=== PATIENT | male | born 1955 | race Caucasian/White ===

== ENCOUNTER 2020-02-06 22:38 | Emergency (ER) | payer BC ==
[2020-02-06 23:06] VITALS: BP 163/93; PULSE 80; RESP 18; TEMP 98
--- NOTE | 2020-02-06 23:56 | ED ---
Skin/Abscess/FB HPI - General Chief complaint: Skin/Abscess/Foreign Body Stated complaint: Bug bite on genitals Time Seen by Provider: 02/06/20 23:09 Source: patient Mode of arrival: ambulatory Limitations: no limitations - History of Present Illness Initial comments: Patient is a 64-year-old male presenting to the emergency Department with complaints of a small bump on his penis that he found this evening. 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 He denies any pain, trouble urinating. He denies any trauma to the area. He states there is some mild itchiness to the area. No other complaints at this time. - Related Data Home Medications Medication Instructions Recorded Confirmed Ibuprofen [Motrin] 200 mg PO ONCE PRN 04/14/16 04/14/16 Lisinopril [Prinivil] 10 mg PO DAILY 04/14/16 04/14/16 Tetrahydrozoline 0.05% Ophth 1 drop BOTH EYES DAILY PRN 04/14/16 04/14/16 [Visine Eye Drops] Previous Rx's Medication Instructions Recorded Mupirocin Calcium 2% Cream 1 applic TOPICAL TID #15 gm 04/14/16 [Bactroban Cream] Allergies Allergy/AdvReac Type Severity Reaction Status Date / Time No Known Allergies Allergy Verified 02/06/20 23:04 Review of Systems ROS Statement: Those systems with pertinent positive or pertinent negative responses have been documented in the HPI. ROS Other: All systems not noted in ROS Statement are negative. Past Medical History Past Medical History: Hypertension History of Any Multi-Drug Resistant Organisms: None Reported Past Surgical History: Hernia Repair Past Psychological History: No Psychological Hx Reported Smoking Status: Never smoker Past Alcohol Use History: None Reported Past Drug Use History: None Reported General Exam - General Exam Comments Initial Comments: GENERAL: Well-appearing, well-nourished and in no acute distress. HEAD: Atraumatic, normocephalic. EYES: Pupils equal round and reactive to light, extraocular movements intact, sclera anicteric, conjunctiva are normal. ENT: Nares patent, oropharynx clear without exudates. Moist mucous membranes. NECK: Normal range of motion, supple without lymphadenopathy or JVD. LUNGS: Breath sounds clear to auscultation bilaterally and equal. No wheezes rales or rhonchi. HEART: Regular rate and rhythm without murmurs, rubs or gallops. ABDOMEN: Soft, nontender, normoactive bowel sounds. No guarding, no rebound. No masses appreciated. : There appears to be a very superficial bruise to the top portion of the penis. There is no swelling, no signs of infection, no sores. EXTREMITIES: Normal range of motion, no pitting or edema. No clubbing or cyanosis. NEUROLOGICAL: Normal speech, normal gait. PSYCH: Normal mood, normal affect. SKIN: Warm, Dry, normal turgor, no rashes or lesions noted. Limitations: no limitations Course Vital Signs 02/06/20 23:04 Temperature 98 F Pulse Rate 80 Respiratory 18 Rate Blood Pressure 163/93 O2 Sat by Pulse 98 Oximetry Medical Decision Making - Medical Decision Making Patient is a 64-year-old male here for a possible blister on his penis. On exam, there appears to be a mild bruise to the top portion of the penis. Patient has no trouble with urination. I discussed with patient to continue to watch the area, as this is most likely a mild bruise. Follow-up with his PCP. He is stable for discharge. Patient is in agreement with this plan of care. Return parameters were discussed with the patient and he verbalized understand ing. Disposition Clinical Impression: Bruise of penis Disposition: HOME SELF-CARE Condition: Stable Additional Instructions: Please return to the Emergency Department if symptoms worsen or any other concerns. Monitor area, follow-up with PCP. Is patient prescribed a controlled substance at d/c from ED?: No Referrals: Ad Cardoza MD [Primary Care Provider] - 1-2 days
== END 2020-02-07 00:12 | disposition home or self-care (01) ==
LOC: EC 22:38
DX: S30.21XA Contusion of penis, initial encounter (principal); I10 Essential (primary) hypertension; Z79.899 Other long term (current) drug therapy; X58.XXXA Exposure to other specified factors, initial encounter
CPT/HCPCS: 99283

== ENCOUNTER 2023-08-25 16:44 | Inpatient (IN) | payer BC, MEDICARE ==
--- NOTE | 2023-08-25 17:03 | ED ---
General Adult HPI - General Source: patient Mode of arrival: ambulatory Limitations: no limitations <Liz Epsinoza - Last Filed: 08/25/23 17:02> - History of Present Illness -: days(s) Location: chest Consistency: now resolved Improves with: none Worsens with: none Associated Symptoms: other (leg swelling) Treatments Prior to Arrival: none <Stalin Donis - Last Filed: 09/01/23 09:51> - General Stated complaint: possible blood clot in left leg Time Seen by Provider: 08/25/23 17:02 - History of Present Illness Initial comments: 67-year-old male presenting with chief complaint of left lower leg swelling. Ongoing for 3 days. He admits to mild shortness of breath which he attributed to recently recovering from pneumonia. No chest pain. No recent surgery, travel, history of blood clot. (Liz Espinoza) this patient is a 67-year-old man who comes in to be evaluated for possible DVT. The patient states that he has noticed about 4 days of left leg swelling. He states that he might have struck the anterior aspect of the leg. He spoke with his physician today who told him that he needed go to the emergency department to be evaluated for possible blood clot. The patient states that in the week prior to the onset of the leg swelling he had been treated for pneumonia. He had been having some shortness of breath, cough and pleuritic chest pain. Patient denies previous history of DVT/PE. (Stalin Donis) - Related Data Previous Rx's Medication Instructions Recorded Apixaban [Eliquis Starter Pack 5 - 10 mg PO DIRECTED 30 Days 08/30/23 (for VTE)] #1 each Diltiazem Cd [Cardizem CD] 120 mg PO BID #90 cap 08/30/23 Metoprolol Tartrate [Lopressor] 25 mg PO BID #90 tab 08/30/23 Allergies Allergy/AdvReac Type Severity Reaction Status Date / Time bee pollen Allergy Rash/Hives Verified 08/25/23 21:50 Review of Systems ROS Other: All systems not noted in ROS Statement are negative. <iLz Espinoza - Last Filed: 08/25/23 17:02> ROS Other: All systems not noted in ROS Statement are negative. Constitutional: Denies: fever, chills, weakness Respiratory: Reports: as per HPI, dyspnea. Denies: cough, wheezes, hemoptysis Cardiovascular: Reports: edema. Denies: chest pain, palpitations, syncope Gastrointestinal: Denies: abdominal pain, nausea, vomiting, diarrhea Genitourinary: Denies: dysuria, hematuria Musculoskeletal: Reports: other (left leg swelling). Denies: back pain Skin: Denies: rash Neurological: Denies: headache, weakness <Stalin Donis - Last Filed: 09/01/23 09:51> ROS Statement: Those systems with pertinent positive or pertinent negative responses have been documented in the HPI. Past Medical History Past Medical History: Hypertension History of Any Multi-Drug Resistant Organisms: None Reported Past Surgical History: Hernia Repair Past Psychological History: No Psychological Hx Reported Past Alcohol Use History: None Reported Past Drug Use History: None Reported <Liz Espinoza - Last Filed: 08/25/23 17:02> General Exam <Liz Espinoza - Last Filed: 08/25/23 17:02> General appearance: alert, in no apparent distress Head exam: Present: atraumatic, normocephalic Eye exam: Present: normal appearance. Absent: scleral icterus, conjunctival injection Neck exam: Present: normal inspection Respiratory exam: Present: normal lung sounds bilaterally. Absent: respiratory distress, wheezes, rales, rhonchi, stridor, chest wall tenderness, accessory muscle use Cardiovascular Exam: Present: tachycardia, irregular rhythm, normal heart sounds. Absent: systolic murmur, diastolic murmur, rubs, gallop GI/Abdominal exam: Present: soft. Absent: distended, tenderness, guarding, rebound, rigid, mass Extremities exam: Present: normal inspection, normal capillary refill. Absent: pedal edema, calf tenderness Back exam: Present: normal inspection. Absent: CVA tenderness (R), CVA tenderness (L) Neurological exam: Present: alert Skin exam: Present: warm, dry, intact, normal color. Absent: rash <Stalin Donis - Last Filed: 09/01/23 09:51> - General Exam Comments Initial Comments: Visual Physical Exam Vital signs reviewed General: Well-appearing, nontoxic, no acute distress. Head: Normocephalic, atraumatic Eyes: PERRLA, EOMI ENT: Airway patent Chest: Nonlabored breathing Skin: No visual rash, normal skin tone Neuro: Alert and oriented 3 Musculoskeletal: No gross abnormalities (Espinoza,Alvinae) Course Vital Signs 08/25/23 08/25/23 08/25/23 17:02 21:14 21:17 Temperature 98 F 98.2 F Pulse Rate 95 70 Respiratory 16 18 Rate Blood Pressure 121/88 144/93 O2 Sat by Pulse 99 96 97 Oximetry 08/25/23 08/25/23 08/26/23 22:00 23:00 00:00 Temperature Pulse Rate 170 H Respiratory 18 Rate Blood Pressure 144/93 120/82 116/91 O2 Sat by Pulse 98 96 Oximetry 08/26/23 08/26/23 08/26/23 00:10 01:01 02:00 Temperature Pulse Rate 151 H 112 H Respiratory 18 19 Rate Blood Pressure 126/114 126/114 126/114 O2 Sat by Pulse 94 L 97 Oximetry 08/26/23 08/26/23 08/26/23 03:00 04:00 05:00 Temperature Pulse Rate 140 H 161 H 160 H Respiratory 18 21 12 Rate Blood Pressure 120/110 123/105 O2 Sat by Pulse 94 L 93 L 95 Oximetry 08/26/23 08/26/23 06:00 07:52 Temperature 97.9 F Pulse Rate 142 H 160 H Respiratory 18 16 Rate Blood Pressure 100/72 134/100 O2 Sat by Pulse 96 94 L Oximetry EKG Findings - EKG Results: EKG: interpreted by [facility], normal axis, normal QRS, normal ST/T EKG shows: tachycardia (rate approximately 160 bpm), atrial fibrillation <Stalin Donis - Last Filed: 09/01/23 09:51> Medical Decision Making - Lab Data Result diagrams: 08/30/23 06:54 08/30/23 06:54 <Stalin Donis - Last Filed: 09/01/23 09:51> - Medical Decision Making patient is 67-year-old man who is here for leg swelling and found to have DVT. When I interview the patient he physical exam does show appears to be atrial f ibrillation with rapid ventricular rate. Computed tomography scan of the chest is added which subsequently revealed extensive bilateral pulmonary embolism. The case discussed with admitting physician and with Dr. Garcia and there treatment recommendations are incorporated. The patient had computed tomography scan of the chest which I interpreted to show bilateral pulmonary embolism. Was pt. sent in by a medical professional or institution ([facility] Rucker, [facility] SPECIALIST, urgent care, hospital, or skilled nursing...) When possible be specific @ -[No] Did you speak to anyone other than the patient for history (EMS, parent, family, police, friend...)? What history was obtained from this source @ -[No] Did you review nursing and triage notes (agree or disagree)? Why? @ -[I reviewed and agree with nursing and triage notes] Were old charts reviewed (outside hosp., previous admission, EMS record, old EKG, old radiological studies, urgent care reports/EKG's, skilled nursing records)? Report findings @ -[No old charts were reviewed] Differential Diagnosis (chest pain, altered mental status, abdominal pain women, abdominal pain men, vaginal bleeding, weakness, fever, dyspnea, syncope, headache, dizziness, GI bleed, back pain, seizure, CVA, palpatations, mental health, musculoskeletal)? @ -[Differential Musculoskeletal Muscular strain, contusion, ligament sprain, fracture, arthritis, septic arthritis, bursitis, cellulitis, muscle spasm, nerve compression, DVT, arterial occlusion, herpes zoster, electrolyte abnormality, tumor.... This is not meant to be in all inclusive list EKG interpreted by me (3pts min.). @ -[As above] X-rays interpreted by me (1pt min.). @ -[None done] CT interpreted by me (1pt min.). @ -[I interpreted as above U/S interpreted by me (1pt. min.). @ -[None done] What testing was considered but not performed or refused? (CT, X-rays, U/S, labs)? Why? @ -[None] What meds were considered but not given or refused? Why? @ -[None] Did you discuss the management of the patient with other professionals (professionals i.e. [facility]ALINE Rucker, LA[facility] SPECIALIST, lab, RT, psych nurse, social work faculty member, litigation specialist, teacher, correctional officer captain, caser in)? Give summary @ -[The case is discussed with admitting physician and with vascular surgeon on-call there treatment recommendations are incorporated Was smoking cessation discussed for >3mins.? @ -[No] Was critical care preformed (if so, how long)? @ -[Yes 35 minutes Were there social determinants of health that impacted care today? How? (Homelessness, low income, unemployed, alcoholism, drug addiction, castillo sportation, low edu. Level, literacy, decrease access to med. care, senior living, rehab)? @ -[No] Was there de-escalation of care discussed even if they declined (Discuss DNR or withdrawal of care, Hospice)? DNR status @ -[No] What co-morbidities impacted this encounter? (DM, HTN, Smoking, COPD, CAD, Cancer, CVA, ARF, Chemo, Hep., AIDS, mental health diagnosis, sleep apnea, morbid obesity)? @ -[None] Was patient admitted / discharged? Hospital course, mention meds given and route, prescriptions, significant lab abnormalities, going to OR and other pertinent info. @ -[As above Undiagnosed new problem with uncertain prognosis? @ -[No] Drug Therapy requiring intensive monitoring for toxicity (Heparin, Nitro, Ins ulin, Cardizem)? @ -[Heparin Were any procedures done? @ -[No] Diagnosis/symptom? @ -[Acute left leg DVT Acute bilateral pulmonary emboli with right heart strain Acute, or Chronic, or Acute on Chronic? @ -[Acute Uncomplicated (without systemic symptoms) or Complicated (systemic symptoms)? @ -[Complicated Side effects of treatment? @ -[No] Exacerbation, Progression, or Severe Exacerbation? @ -[No] Poses a threat to life or bodily function? How? (Chest pain, [place], [place], pneumonia, PE, COPD, DKA, ARF, appy, cholecystitis, CVA, Diverticulitis, Homicidal, Suicidal, threat to staff... and all critical care pts) @ -[Yes (Stalin Donis) Critical Care Time Critical Care Time: Yes (35 minutes) <Stalin Donis - Last Filed: 09/01/23 09:51> Disposition <Liz Espinoza - Last Filed: 08/25/23 17:02> Is patient prescribed a controlled substance at d/c from ED?: No <Stalin Donis - Last Filed: 09/01/23 09:51> Clinical Impression: DVT (deep venous thrombosis) Disposition: ADMITTED IP TO THIS HOSP Condition: Stable
--- NOTE | 2023-08-25 18:31 | US ---
EXAMINATION TYPE: US venous doppler duplex LE LT DATE OF EXAM: 08/25/2023 5:53 PM COMPARISON: NONE CLINICAL INDICATION: Male, 67 years old with history of swelling; Left leg swelling/ recent pneumonia SIDE PERFORMED: Left TECHNIQUE: The lower extremity deep venous system is examined utilizing real time linear array sonog tracee with graded compression, doppler sonography and color-flow sonography. VESSELS IMAGED: Common Femoral Vein Deep Femoral Vein Greater Saphenous Vein * Femoral Vein Popliteal Vein Small Saphenous Vein * Proximal Calf Veins (* superficial vessels) Left Leg: Positive for DVT entire left leg IMPRESSION: Extensive acute DVT throughout the imaged left lower extremity.
[2023-08-25] MEDS ORDERED: HEPARIN SODIUM 1,000 UN/ML (10ML VL) IV ONE (21:17)
[2023-08-25] MEDS ORDERED: HEPARIN SODIUM 1,000 UN/ML (10ML VL) IV PRN (21:17)
[2023-08-25] MEDS ORDERED: NALOXONE 0.4 MG/ML 1 ML VIAL IV PRN (21:23)
[2023-08-25] MEDS ORDERED: ACETAMINOPHEN TAB 325 MG TAB PO PRN (21:23)
[2023-08-25] MEDS ORDERED: MAG HYDROX/AL HYDROX/SIMETH 30 ML CUP PO PRN (21:23)
[2023-08-25 22:26] LABS: Basophils # (A) 0.1 k/uL (0-0.2); Basophils % (A) 1 %; Eosinophils # (A) 0.2 k/uL (0-0.7); Eosinophils % (A) 2 %; HCT 50.4 % (39.0-53.0); HGB 16.8 gm/dL (13.0-17.5); Lymphocytes # (A) 2.1 k/uL (1.0-4.8); Lymphocytes % (A) 20 %; MCH 31.4 pg (25.0-35.0); MCHC 33.3 g/dL (31.0-37.0); MCV 94.3 fL (80.0-100.0); Monocytes # (A) 0.7 k/uL (0-1.0); Monocytes % (A) 7 %; Neutrophils % (A) 68 %; Platelet Count 164 k/uL (150-450); RBC 5.35 m/uL (4.30-5.90); RDW 13.7 % (11.5-15.5); WBC 10.2 k/uL (3.8-10.6)
[2023-08-25 22:37] LABS: INR 1.2 (<1.2); Partial Thromboplastin Time 25.9 sec (22.0-30.0); Prothrombin Time 12.4 sec (10.0-12.5)
[2023-08-25] MEDS: HEPARIN SOD,PORK IN 0.45% NACL 25,000 UNIT in 0.45% NACL 1 250ML.BAG IV SCH (22:39)
[2023-08-25] MEDS ORDERED: DILTIAZEM DRIP BOLUS FROM BAG 1 MG SOLN IV ONE (23:39)
[2023-08-25] MEDS ORDERED: DILTIAZEM 125 MG in SODIUM CHLORIDE 0.9% 100 ML IV SCH (23:45)
[2023-08-26] MEDS: SODIUM CHLORIDE 0.9% 1,000 ML IV SCH ×2 (00:01→11:55)
[2023-08-26 00:51] LABS: ALT 24 U/L (4-49); AST 27 U/L (17-59); African American GFR (CKD) >90 (>60 ml/min/1.73 sqM); Albumin 3.8 g/dL (3.5-5.0); Albumin/Globulin Ratio 1.1; Alkaline Phosphatase 103 U/L (38-126); Anion Gap 10 mmol/L; Blood Urea Nitrogen 10 mg/dL (9-20); Calcium 9.2 mg/dL (8.4-10.2); Carbon Dioxide 21 mmol/L (22-30); Chloride 105 mmol/L (98-107); Globulin 3.5 g/dL; Glucose 106 mg/dL (74-99); Non-African American GFR(CKD) >90 (>60 ml/min/1.73 sqM); Sodium 136 mmol/L (137-145); Total Protein 7.3 g/dL (6.3-8.2)
--- NOTE | 2023-08-26 03:48 | CT ---
EXAM: CT Angiography Chest With Intravenous Contrast CLINICAL HISTORY: Possible PE TECHNIQUE: Axial computed tomographic angiography images of the chest with intravenous contrast. CTDI is 33.2 mGy and DLP is 298.2 mGy-cm. This CT exam was performed using one or more of the following dose reduction techniques: automated exposure control, adjustment of the mA and/or kV according to patient size, and/or use of iterative reconstruction technique. MIP reconstructed images were created and reviewed. COMPARISON: No relevant prior studies available. FINDINGS: Pulmonary arteries: There are very extensive filling defects bilaterally within the lungs in all lobes consistent with pulmonary emboli. Aorta: No acute findings. No thoracic aortic aneurysm. Lungs: Small patchy areas of infiltration in the right lower lobe and left lower lobe which may represent developing infarcts. No mass. Pleural space: Very small pleural effusions. No pneumothorax. Heart: Unremarkable. No cardiomegaly. No significant pericardial effusion. There is mild enlargement of the right ventricle with flattening of the interventricular septum likely indicating some degree of right heart strain. Bones/joints: No acute fracture. No dislocation. Soft tissues: Unremarkable. Lymph nodes: Unremarkable. No enlarged lymph nodes. IMPRESSION: Very extensive bilateral pulmonary emboli. <MYCVCSECTION> Communications: 08/26/23 03:43 Call Doctor Regarding Pulmonary Embolism, called ER Dr. Winkler on 08/26 03:42 (-05:00)
--- NOTE | 2023-08-26 03:52 | P.HPIM ---
History of Present Illness H&P Date: 08/26/23 Patient is a 67-year-old male with a PMH of hypertension who presents to the emergency room with complaints of bilateral lower extremity swelling and left lower extremity pain. Patient reports he has been experiencing chronic lower extremity edema over the past 3-4 years which he was told by his PCP was likely due to his Norvasc. He states that he developed worsening left lower extremity edema 3-4 days ago and then developed some pain in. Does report hitting his left leg and has a bruise over the left anterior jackson. Denies any prior history of blood clots. Also reports mild right-sided pleuritic chest discomfort with some shortness of breath over the past 2 days. Denies recent travel. Lower extremity Doppler in the emergency room revealed a DVT in the entire left leg with EKG showing A. fib with RVR at 160 bpm. Chest CTA revealed findings consistent with bilateral submassive PE with evidence of right heart strain. Laboratory evaluation revealed sodium 136, CO2 21, creatinine 0.49, glucose 106. ED documentation reviewed and case discussed with ED provider. Review of systems: Pertinent positives and negatives as discussed in HPI, a complete review of systems was performed and all other systems are negative. Physical examination: Vital signs reviewed General: non toxic, no distress, appears at stated age, normal weight Derm: no unusual rashes/lesions, warm Head: atraumatic, normocephalic, symmetric Eyes: EOMI, no lid lag, anicteric sclera, pupils equal round reactive to light ENT: Nose and ears atraumatic Neck: No cervical lymphadenopathy, trachea midline, supple Mouth: no lip lesion, mucus membranes moist Cardiovascular: S1S2 reg, no murmur, positive dorsalis pedis pulse bilateral, 2+ bilateral lower extremity pitting edema Lungs: CTA bilateral, no rhonchi, no rales, no accessory muscle use Abdominal: soft, nontender to palpation, no guarding Ext: muscle strength 5 out of 5 in all 4 extremities grossly, no gross muscle atrophy, no contractures, bilateral lower extremity chronic venous stasis changes noted with hyper pigmentation and diffuse mild left lower extremity tenderness without erythema, bruising over the proximal left anterior jackson Neuro: CN II-XI grossly intact, no gross focal neuro deficits Psych: Alert, oriented, appropriate affect Assessment: Left lower extremity DVT with bilateral submassive PE with right heart strain Afib with RVR, newly diagnosed Chronc conditions: HTN Chronic bilateral lower extremity edema, suspect due to varicose veins, rule out CHF Imaging: Lower extremity Doppler in the emergency room revealed a DVT in the entire left leg with EKG showing A. fib with RVR at 160 bpm. Data Review: Laboratory evaluation revealed sodium 136, CO2 21, creatinine 0.49, glucose 106 Plan: Continue with heparin infusion high-dose Continue Cardizem infusion Cardiac monitoring Vascular surgery consulted. Discussed that the patient may be a candidate for EKOS Obtain echocardiogram C/w IVFs NS 75 ml/hr DVT prophylaxis: Heparin infusion The patient is admitted with an anticipated greater than 2 midnight stay for evaluation of acute PE and DVT CODE STATUS: Full Code Discussed with: Patient Anticipated discharge place: Home Past Medical History Past Medical History: Hypertension History of Any Multi-Drug Resistant Organisms: None Reported Past Surgical History: Hernia Repair Past Psychological History: No Psychological Hx Reported Past Alcohol Use History: None Reported Past Drug Use History: None Reported Medications and Allergies Home Medications Medication Instructions Recorded Confirmed Type Metoprolol Succinate (ER) [Toprol 25 mg PO DAILY 08/25/23 08/25/23 History Xl] amLODIPine [Norvasc] 10 mg PO DAILY 08/25/23 08/25/23 History Allergies Allergy/AdvReac Type Severity Reaction Status Date / Time bee pollen Allergy Rash/Hives Verified 08/25/23 21:50 Physical Exam Vitals: Vital Signs Temp Pulse Resp BP Pulse Ox 08/26/23 00:10 151 H 18 126/114 94 L 08/25/23 21:14 98.2 F 70 18 144/93 96 08/25/23 17:02 98 F 95 16 121/88 99 Intake and Output 08/25/23 08/25/23 08/26/23 14:59 22:59 06:59 Other: Weight 80.739 kg Results CBC & Chem 7: 08/25/23 22:10 08/26/23 00:01 Labs: Abnormal Lab Results - Last 24 Hours (Table) 08/25/23 08/26/23 Range/Units 22:10 00:01 INR 1.2 H (<1.2) Sodium 136 L (137-145) mmol/L Carbon Dioxide 21 L (22-30) mmol/L Creatinine 0.49 L (0.66-1.25) mg/dL Glucose 106 H (74-99) mg/dL
[2023-08-26 04:49] LABS: Basophils # (A) 0.1 k/uL (0-0.2); Basophils % (A) 1 %; Eosinophils # (A) 0.1 k/uL (0-0.7); Eosinophils % (A) 1 %; HCT 50.6 % (39.0-53.0); HGB 16.3 gm/dL (13.0-17.5); Lymphocytes # (A) 1.6 k/uL (1.0-4.8); Lymphocytes % (A) 17 %; MCH 30.9 pg (25.0-35.0); MCHC 32.2 g/dL (31.0-37.0); MCV 95.9 fL (80.0-100.0); Mean Platelet Volume 8.3; Monocytes # (A) 0.7 k/uL (0-1.0); Monocytes % (A) 8 %; Neutrophils # (A) 6.8 k/uL (1.3-7.7); Neutrophils % (A) 71 %; Platelet Count 154 k/uL (150-450); RBC 5.28 m/uL (4.30-5.90); RDW 14.1 % (11.5-15.5); WBC 9.6 k/uL (3.8-10.6)
[2023-08-26] MEDS: HEPARIN SOD,PORK IN 0.45% NACL 25,000 UNIT in 0.45% NACL 1 250ML.BAG IV SCH ×3 (05:35→22:03)
--- NOTE | 2023-08-26 08:22 | P.GSCN ---
History of Present Illness Consult date: 08/26/23 Reason for Consult: Pulmonary embolism/left lower extremity deep venous thrombosis. History of present illness: Patient is a 67-year-old male who presented with a chief complaint of left leg swelling. Symptoms have been ongoing for the past 3-4 days. He denies any previous similar symptoms. Recently he was diagnosed with "pneumonia". Over the past few days his shortness of breath has increased. While in the emergency Department venous duplex was performed demonstrating extensive left lower extremity deep venous thrombosis and I do suspect this thrombus extends above the inguinal ligament. Additionally computed tomography scan of the chest demonstrates extensive bilateral pulmonary emboli with evidence of right heart strain. Troponins have been ordered however results are not yet available. Patient denies any known history of deep venous thrombosis. There is no family history of thrombophilia. He does have a history of venous insufficiency affecting the lower extremities bilaterally. He is now in an atrial fibrillatio n pattern. Past Medical History Past Medical History: Hypertension History of Any Multi-Drug Resistant Organisms: None Reported Past Surgical History: Hernia Repair Past Psychological History: No Psychological Hx Reported Past Alcohol Use History: None Reported Past Drug Use History: None Reported Medications and Allergies Home Medications Medication Instructions Recorded Confirmed Type Metoprolol Succinate (ER) [Toprol 25 mg PO DAILY 08/25/23 08/25/23 History Xl] amLODIPine [Norvasc] 10 mg PO DAILY 08/25/23 08/25/23 History Allergies Allergy/AdvReac Type Severity Reaction Status Date / Time bee pollen Allergy Rash/Hives Verified 08/25/23 21:50 Surgical - Exam Osteopathic Statement: *. No significant issues noted on an osteopathic structural exam other than those noted in the History and Physical/Consult. Vital Signs Temp Pulse Resp BP Pulse Ox 98 F 95 16 121/88 99 08/25/23 17:02 08/25/23 17:02 08/25/23 17:02 08/25/23 17:02 08/25/23 17:02 Head is normocephalic and atraumatic. Heart: Irregular. Lungs: Decreased breath sounds bilaterally, left more pronounced in the right. Abdomen: Soft and benign. Lower extremity examination: Femoral, popliteal, DP and PT pulses are intact bilaterally. Leg edema is identified on the left. Stasis dermatitis changes (CEAP IV) noted bilaterally. I reviewed the results of the venous duplex imaging as well as the CTA of the chest. CT demonstrates extensive bilateral pulmonary emboli. Venous duplex imaging demonstrates femoral, popliteal as well as tibial venous thrombosis on the left. 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 Results - Labs 08/26/23 04:28 08/26/23 00:01 Abnormal Lab Results - Last 24 Hours (Table) 08/25/23 08/26/23 08/26/23 Range/Units 22:10 00:01 04:28 INR 1.2 H (<1.2) APTT 96.9 H (22.0-30.0) sec Sodium 136 L (137-145) mmol/L Carbon Dioxide 21 L (22-30) mmol/L Creatinine 0.49 L (0.66-1.25) mg/dL Glucose 106 H (74-99) mg/dL Diabetes panel 08/26/23 Range/Units 00:01 Sodium 136 L (137-145) mmol/L Potassium 4.0 (3.5-5.1) mmol/L Chloride 105 (98-107) mmol/L Carbon Dioxide 21 L (22-30) mmol/L BUN 10 (9-20) mg/dL Creatinine 0.49 L (0.66-1.25) mg/dL Glucose 106 H (74-99) mg/dL Calcium 9.2 (8.4-10.2) mg/dL AST 27 (17-59) U/L ALT 24 (4-49) U/L Alkaline Phosphatase 103 (38-126) U/L Total Protein 7.3 (6.3-8.2) g/dL Albumin 3.8 (3.5-5.0) g/dL Calcium panel 08/26/23 Range/Units 00:01 Calcium 9.2 (8.4-10.2) mg/dL Albumin 3.8 (3.5-5.0) g/dL Pituitary panel 08/26/23 Range/Units 00:01 Sodium 136 L (137-145) mmol/L Potassium 4.0 (3.5-5.1) mmol/L Chloride 105 (98-107) mmol/L Carbon Dioxide 21 L (22-30) mmol/L BUN 10 (9-20) mg/dL Creatinine 0.49 L (0.66-1.25) mg/dL Glucose 106 H (74-99) mg/dL Calcium 9.2 (8.4-10.2) mg/dL Adrenal panel 08/26/23 Range/Units 00:01 Sodium 136 L (137-145) mmol/L Potassium 4.0 (3.5-5.1) mmol/L Chloride 105 (98-107) mmol/L Carbon Dioxide 21 L (22-30) mmol/L BUN 10 (9-20) mg/dL Creatinine 0.49 L (0.66-1.25) mg/dL Glucose 106 H (74-99) mg/dL Calcium 9.2 (8.4-10.2) mg/dL Total Bilirubin 1.0 (0.2-1.3) mg/dL AST 27 (17-59) U/L ALT 24 (4-49) U/L Alkaline Phosphatase 103 (38-126) U/L Total Protein 7.3 (6.3-8.2) g/dL Albumin 3.8 (3.5-5.0) g/dL Assessment and Plan Assessment: 1: Extensive bilateral submassive pulmonary emboli resulting in right heart strain as demonstrated on computed tomography scan as well as new cardiac dysrhythmia. 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 3: History of hypertension. Plan: 1: I discussed with the patient pulmonary thrombo-lysis. The procedure, risk and benefits were discussed with the patient. All questions were answered to patient's satisfaction. Patient wishes to proceed. 2: Patient may benefit from thrombectomy left iliac vein. This can be planned at a later date. Time with Patient: Greater than 30
[2023-08-26] MEDS ORDERED: ALTEPLASE 2 MG VIAL (CATHFLO) IV STA (08:55)
[2023-08-26] MEDS ORDERED: HEPARIN SOD,PORK IN 0.45% NACL 25,000 UNIT in 0.45% NACL 1 250ML.BAG IV SCH ×2 (09:00)
[2023-08-26] MEDS ORDERED: ALTEPLASE 6 MG in SODIUM CHLORIDE 0.9% 144 ML IV ONE (09:00)
[2023-08-26] MEDS ORDERED: SODIUM CHLORIDE 0.9% 1,000 ML IV SCH ×2 (09:00)
[2023-08-26] MEDS ORDERED: IV FLUID CONTINUATION 600 ML IV ONE (09:32)
[2023-08-26] MEDS ORDERED: LIDOCAINE 1% INJ 10MG/ML (20 ML MDV) ONE (09:47)
[2023-08-26] MEDS ORDERED: fentaNYL (PF) 50 MCG/ML 2 ML AMP ONE (09:56)
[2023-08-26] MEDS ORDERED: fentaNYL (PF) 50 MCG/ML 2 ML AMP IVP ONE (09:59)
[2023-08-26] MEDS ORDERED: MIDAZOLAM 2 MG/2 ML VIAL IVP ONE (09:59)
[2023-08-26] MEDS ORDERED: LIDOCAINE 1% INJ 10MG/ML (20 ML MDV) SQ ONE (10:00)
[2023-08-26] MEDS ORDERED: ALTEPLASE 2 MG VIAL (CATHFLO) IV ONE ×2 (10:22)
[2023-08-26] MEDS ORDERED: IOPAMIDOL-370 100ML BTL INJ ONE (10:30)
[2023-08-26] MEDS: ALTEPLASE 6 MG in SODIUM CHLORIDE 0.9% 144 ML IV ONE ×3 (10:41→11:57)
--- NOTE | 2023-08-26 10:52 | P.OP ---
Date of Procedure: 08/26/23 Preoperative Diagnosis: Bilateral submassive pulmonary emboli, with evidence of right heart strain on computed tomography scan. Postoperative Diagnosis: Same. Procedure(s) Performed: 1: Ultrasound-guided cannulation right femoral vein 2. 2: Placement of bilateral pulmonary artery catheter 2 with initiation of TPA thrombolysis (Ekos). Anesthesia: local (1% Xylocaine with 50 g of fentanyl and 2 mg of Versed administered intravenously for moderate conscious sedation purposes.) Surgeon: Garcia Madrid Estimated Blood Loss (ml): 2 Pathology: none sent Condition: stable Disposition: no change Indications for Procedure: Patient is a 67-year-old male who presented with a complaint of significant left leg edema. For the past few weeks she's been suffering from what is described by the patient as "pneumonia". CTA of the chest was performed which demonstrated submassive bilateral pulmonary emboli as evidence by right heart strain. Because of the pulmonary embolism and evidence of right heart strain patient is offered pulmonary thrombolyzes. The procedure, risk and benefits were discussed. All questions were answered patient's satisfaction. Consent form was signed. Description of Procedure: Patient was brought to the cardiac catheterization suite. Both groins were sterilely prepped and draped in usual manner. Patient did receive 50 g of fentanyl as well as 2 mg of Versed intravenously for moderate conscious sedation purposes. Utilizing ultrasound the right common femoral vein was identified. 1% Xylocaine was utilized for local anesthesia of tissues overlying the femoral vein. Through this anesthetized area and with the aid of ultrasound a micropuncture needle was utilized to cannulate the vein. Once cannulated a Softip guidewire is advanced into the vein. The needle was withdrawn and a micropuncture sheath and dilator advanced over the guidewire. Micropuncture needle and dilator were removed and a 0.035 inch J-tipped wire was advanced into the iliac vein. The micropuncture sheath was exchanged for 6-Sinhala sheath. This procedure was performed a second time for bilateral pulmonary artery catheter placement. Each sheath was secured to the skin with 2-0 silk suture. Angled glide catheter and Glidewire combination were utilized in conjunction to traverse from the right ventricle to the pulmonary outflow track. Guidewire was advanced into the left pulmonary artery. Winside catheter was then advanced over the guidewire and positioned in the pulmonary artery. Winside wire was exchanged for a glide advantage guidewire. The glide catheter was exchanged for Ekos infusion catheter which was positioned appropriately. Guidewire was withdrawn and the vibratory mechanism was advanced into the infusion catheter. 2 mg of TPA was then instilled for initiation of thrombolyzes. This procedure was performed a second time for cannulation of the right pulmonary artery and placement of Ekos catheter and initiation of TPA thrombolysis. Proper dressings were applied. Patient tolerated procedure well and will be taken to the intensive care unit per protocol. We will initiate 1 mg of TPA to be administered via each of the 2 infusion catheters. Systemic heparin will be administered through the side port of each sheath.
[2023-08-26] MEDS ORDERED: AMIODARONE 200 MG TAB PO SCH (13:30)
--- NOTE | 2023-08-26 14:06 | P.CRDCN ---
History of Present Illness Consult date: 08/26/23 Consult reason: atrial fibrillation Past Medical History Past Medical History: Hypertension Additional Past Medical History / Comment(s): shingles April 2023. Pneumonia July 2023. New Afib History of Any Multi-Drug Resistant Organisms: None Reported Past Surgical History: Hernia Repair Additional Past Surgical History / Comment(s): Right knee replacement Past Anesthesia/Blood Transfusion Reactions: No Reported Reaction Past Psychological History: No Psychological Hx Reported Past Alcohol Use History: None Reported Past Drug Use History: None Reported Medications and Allergies Home Medications Medication Instructions Recorded Confirmed Type Metoprolol Succinate (ER) [Toprol 25 mg PO DAILY 08/25/23 08/25/23 History Xl] amLODIPine [Norvasc] 10 mg PO DAILY 08/25/23 08/25/23 History Allergies Allergy/AdvReac Type Severity Reaction Status Date / Time bee pollen Allergy Rash/Hives Verified 08/25/23 21:50 Physical Exam Vitals: Vital Signs Temp Pulse Resp BP Pulse Ox 08/26/23 13:30 108 H 17 93 L 08/26/23 13:00 135 H 10 L 120/95 93 L 08/26/23 12:30 161 H 14 107/95 89 L 08/26/23 12:00 98.3 F 137 H 10 L 109/94 92 L 08/26/23 07:52 97.9 F 160 H 16 134/100 94 L 08/26/23 06:00 142 H 18 100/72 96 08/26/23 05:00 160 H 12 123/105 95 08/26/23 04:00 161 H 21 93 L 08/26/23 03:00 140 H 18 120/110 94 L 08/26/23 02:00 112 H 19 126/114 97 08/26/23 01:01 126/114 08/26/23 00:10 151 H 18 126/114 94 L 08/26/23 00:00 170 H 18 116/91 96 08/25/23 23:00 120/82 08/25/23 22:00 144/93 98 08/25/23 21:17 97 08/25/23 21:14 98.2 F 70 18 144/93 96 08/25/23 17:02 98 F 95 16 121/88 99 Intake and Output 12/22/23 12/23/23 12/23/23 22:59 06:59 14:59 Intake Total 100.762 560.833 Output Total 0 Balance 100.762 560.833 Intake: IV 310 Sodium Chloride 0.9% 1, 210 000 ml @ 35 mls/hr IV . Q24H [facility] Rx#:[id number] Intake, IV Titration 100.762 0.833 Amount Alteplase 6 mg In Sodium 0.833 Chloride 0.9% 144 ml @ 1 MG/HR 25 mls/hr IV .Q6H [facility] Rx#:[id number] Heparin Sod,Pork in 0.45% 100.762 NaCl 25,000 unit In 0.45 % NaCl 1 250ml.bag @ 18 UNITS/KG/HR 14.533 mls/hr IV .[id number] [facility] Rx#: [id number] Blood Product 250 Output: Urine 0 Other: Voiding Method Urinal Weight 80.739 kg 80.739 kg Results 08/26/23 04:28 08/26/23 00:01 Cardiac Enzymes 08/26/23 08/26/23 Range/Units 00:01 08:15 AST 27 (17-59) U/L Troponin I <0.012 (0.000-0.034) ng/mL Coagulation 08/25/23 08/26/23 Range/Units 22:10 04:28 PT 12.4 (10.0-12.5) sec APTT 25.9 96.9 H (22.0-30.0) sec CBC 08/25/23 08/26/23 Range/Units 22:10 04:28 WBC 10.2 9.6 (3.8-10.6) k/uL RBC 5.35 5.28 (4.30-5.90) m/uL Hgb 16.8 16.3 (13.0-17.5) gm/dL Hct 50.4 50.6 (39.0-53.0) % Plt Count 164 154 (150-450) k/uL Comprehensive Metabolic Panel 08/26/23 Range/Units 00:01 Sodium 136 L (137-145) mmol/L Potassium 4.0 (3.5-5.1) mmol/L Chloride 105 (98-107) mmol/L Carbon Dioxide 21 L (22-30) mmol/L BUN 10 (9-20) mg/dL Creatinine 0.49 L (0.66-1.25) mg/dL Glucose 106 H (74-99) mg/dL Calcium 9.2 (8.4-10.2) mg/dL AST 27 (17-59) U/L ALT 24 (4-49) U/L Alkaline Phosphatase 103 (38-126) U/L Total Protein 7.3 (6.3-8.2) g/dL Albumin 3.8 (3.5-5.0) g/dL Current Medications Generic Name Dose Route Start Last Admin Trade Name Freq PRN Reason Stop Dose Admin Acetaminophen 650 mg 08/25/23 21:23 Acetaminophen Tab 325 Mg Tab PO Q6HR PRN Mild Pain or Fever > 100.5 Al Hydroxide/Mg Hydroxide 15 ml 08/25/23 21:23 Mag Hydrox/Al Hydrox/Simeth 30 Ml Cup PO Q6HR PRN Indigestion Amiodarone HCl 200 mg 08/26/23 13:30 08/26/23 13:35 Amiodarone 200 Mg Tab PO 200 mg BID LIT Administration Sodium Chloride 1,000 mls @ 35 mls/hr 08/25/23 21:30 08/26/23 11:55 Saline 0.9% IV 35 mls/hr .Q24H LIT Administration Diltiazem HCl 125 mg/ Sodium 125 mls @ 0 mls/hr 08/26/23 08:45 Chloride IV .Q0M LIT Protocol Per Protocol Sodium Chloride 1,000 mls @ 35 mls/hr 08/26/23 09:00 08/26/23 10:44 Saline 0.9% IV 0 mls .Q24H LIT Administration Sodium Chloride 1,000 mls @ 35 mls/hr 08/26/23 09:00 08/26/23 10:45 Saline 0.9% IV 0 mls .Q24H LIT Administration Heparin Sodium/Sodium Chloride 250 mls @ 2.5 mls/hr 08/26/23 09:00 08/26/23 10:42 25,000 unit/ Sodium Chloride IV 0 mls .Q24H LIT Administration Heparin Sodium/Sodium Chloride 250 mls @ 2.5 mls/hr 08/26/23 09:00 08/26/23 10:43 25,000 unit/ Sodium Chloride IV 0 mls .Q24H LIT Administration Alteplase, Recombinant 6 mg/ 150 mls @ 25 mls/hr 08/26/23 09:00 08/26/23 10:40 Sodium Chloride IV 08/26/23 14:59 0 mls .Q6H ONE Administration Protocol 1 MG/HR Alteplase, Recombinant 6 mg/ 150 mls @ 25 mls/hr 08/26/23 09:00 08/26/23 11:57 Sodium Chloride IV 08/26/23 14:59 1 mg/hr .Q6H ONE 25 mls/hr Administration Protocol 1 MG/HR Naloxone HCl 0.2 mg 08/25/23 21:23 Naloxone 0.4 Mg/Ml 1 Ml Vial IV Q2M PRN Opioid Reversal Intake and Output 08/25/23 08/26/23 08/26/23 22:59 06:59 14:59 Intake Total 100.762 560.833 Output Total 0 Balance 100.762 560.833 Intake: IV 310 Sodium Chloride 0.9% 1, 210 000 ml @ 35 mls/hr IV . Q24H [facility] Rx#:[id number] Intake, IV Titration 100.762 0.833 Amount Alteplase 6 mg In Sodium 0.833 Chloride 0.9% 144 ml @ 1 MG/HR 25 mls/hr IV .Q6H [facility] Rx#:[id number] Heparin Sod,Pork in 0.45% 100.762 NaCl 25,000 unit In 0.45 % NaCl 1 250ml.bag @ 18 UNITS/KG/HR 14.533 mls/hr IV .[id number] [facility] Rx#: [id number] Blood Product 250 Output: Urine 0 Other: Voiding Method Urinal Weight 80.739 kg 80.739 kg Patient Weight 08/27/23 06:59 Weight 80.739 kg 08/26/23 04:28 08/26/23 00:01
--- NOTE | 2023-08-26 14:26 | CA ---
Transthoracic Echo Report Name: Marbin Magaña Age: 67 Gender: M : 1955 Exam Date: 08/26/2023 08:23 Exam Location: [facility] Ht (in): 71 Wt (lb): 178 Ordering Physician: Mami Miner MD Attending/Referring Phys: Shipfitter Apprentice David Wood Procedure CPT: Indications: acute PE, CRYSTAL Cardiac Hx: Technical Quality: Fair Contrast 1: Total Dose (mL): Contrast 2: Total Dose (mL): MEASUREMENTS (Male / Female) Normal Values 2D ECHO LV Diastolic Diameter PLAX 4.1 cm 4.2 - 5.9 / 3.9 - 5.3 cm LV Systolic Diameter PLAX 2.3 cm IVS Diastolic Thickness 1.4 cm 0.6 - 1.0 / 0.6 - 0.9 cm LVPW Diastolic Thickness 1.2 cm 0.6 - 1.0 / 0.6 - 0.9 cm LV Relative Wall Thickness 0.6 RV Internal Dim ED PLAX 3.1 cm LVOT Diameter 2.0 cm Aortic Root Diameter 3.2 cm LA Systolic Diameter LX 3.3 cm 3.0 - 4.0 / 2.7 - 3.8 cm LV Diastolic Volume MOD BP 26.0 cm??? 67 - 155 / 56 - 104 cm??? LV Systolic Volume MOD BP 14.3 cm??? - / 19 - 49 cm??? LV Ejection Fraction MOD BP 44.8 % >= 55 % LV Cardiac Index MOD BP 772.2 cm???/min???m??? LV Diastolic Volume MOD 4C 26.5 cm??? LV Systolic Volume MOD 4C 16.2 cm??? LV Ejection Fraction MOD 4C 38.8 % LV Cardiac Index MOD 4C 682.6 cm???/min???m??? LV Diastolic Length 4C 5.9 cm LV Systolic Length 4C 5.8 cm LV Diastolic Volume MOD 2C 25.0 cm??? LV Systolic Volume MOD 2C 12.5 cm??? LV Ejection Fraction MOD 2C 50.0 % LV Cardiac Index MOD 2C 828.2 cm???/min???m??? LV Diastolic Length 2C 6.0 cm LV Systolic Length 2C 5.7 cm LA Volume 49.8 cm??? - 58 / 22 - 52 cm??? LA Volume Index 24.7 cm???/m??? 16 - 28 cm???/m??? Ascending Aorta Diameter 3.1 cm DOPPLER AV Peak Velocity 145.9 cm/s AV Peak Gradient 8.5 mmHg LVOT Peak Velocity 87.8 cm/s LVOT Peak Gradient 3.1 mmHg LVOT Velocity Time Integral 14.3 cm LVOT Stroke Volume 45.8 cm??? LVOT Stroke Volume Index 22.8 ml/m??? LVOT Cardiac Index 3040.1 cm???/min???m??? AV Area Cont Eq pk 1.9 cm??? MV Peak Velocity 118.5 cm/s MV Peak Gradient 5.6 mmHg MV Mean Velocity 47.6 cm/s MV Mean Gradient 1.2 mmHg MV Velocity Time Integral 27.1 cm MR Peak Velocity 245.7 cm/s MR Peak Gradient 24.1 mmHg MV E' Velocity 7.1 cm/s TR Peak Velocity 290.5 cm/s TR Peak Gradient 33.8 mmHg Right Ventricular Systolic Press 38.8 mmHg PV Peak Velocity 90.4 cm/s PV Peak Gradient 3.3 mmHg FINDINGS Left Ventricle Normal LV size and wall thickness. Left ventricular ejection fraction is estimated at 45-50 %. Right Ventricle Normal right ventricular size. RVSP= 39mmHg. Right Atrium Normal right atrial size. Left Atrium Normal left atrial size. Mitral Valve Structurally normal mitral valve. Trace MR. Aortic Valve Trileaflet aortic valve. No aortic valve stenosis or regurgitation. Tricuspid Valve Structurally normal tricuspid valve. Mild to moderate TR. Pulmonic Valve Pulmonic valve not well visualized. No pulmonic regurgitation. Pericardium Normal pericardium. Aorta Normal size aortic root and proximal ascending aorta. CONCLUSIONS Low normal LV systolic function Septal bounce Normal RV size Right ventricular free wall appears to be ester No obvious intracardiac masses Previewed by: Dr. Alec Gooden MD (Electronically Signed) Final Date: 26 August 2023 14:24
--- NOTE | 2023-08-26 15:03 | P.CRDCN ---
History of Present Illness History of present illness: This is Dr. Gooden dictating a consult on this patient The patient was interviewed and examined IMPRESSION / ASSESSMENT: Atrial fibrillation with RVR upon admission Extensive left lower extremity DVT Bilateral pulmonary emboli, possible infarction Recent treatment for pneumonitis Known hypertension Normal troponins PLAN: This gentleman has extensive lower extremity DVT, bilateral pulmonary emboli with possible infarction Mild strain on computed tomography scan Normal RV size on echo with right ventricular systolic pressure of 39 mmHg and right ventricular free wall that's appears to be ester. Upon admission he was already in atrial fibrillation with RVR He is currently receiving local anticoagulation and thrombolytic therapy and the pulmonary artery. However he needs anticoagulation for stroke prevention for atrial fibrillation He also needs anticoagulation for the source of this pulmonary embolism, namely the extensive left lower extremity DVT I would recommend systemic anticoagulation with IV heparin for management of atrial fibrillation and stroke risk, extensive left lower extremity DVT and pulmonary embolism I consulted pulmonary medicine and discussed with Rate control with IV Cardizem for atrial fibrillation for now HPI 67-year-old male patient presenting with left lower extremity swelling for 3-4 days Obtaining a mild shortness of breath, recovering from pneumonia. He has been experiencing shortness of breath cough pleuritic chest pain Past medical history of hypertension Currently on metoprolol succinate and amlodipine Found to be in atrial fibrillation with RVR upon admission Blood pressure 121/88, 144/93, 120 60 114 Elevated heart rates of between 140-160/m Twelve-lead EKG showed atrial fibrillation with RVR upon admission heart rates 160 bpm Left lower extremity shows DVT in the entire left leg Extensive acute DVT Extensive filling defects bilaterally within the lungs in all lobes consistent with pulmonary embolism Small patchy areas of infiltration in the right lower lobe and left lower lobe, possible infarct Mild enlargement of the right ventricle and CT with flattening of the interventricular septum indicating some degree of right heart strain Patient underwent EKOS and currently has low-dose TPA and heparin being infused locally in the pulmonary artery 2-D echo shows normal RV size on echo septal bounce, right ventricular systolic pressure of 39 mmHg RV free wall appears to be ester LV systolic function of about 45-50% during atrial fibrillation with RVR ROS: No fever chills or rigors, no cough, phlegm or expectoration, no nausea, vomiting or diarrhea, no hematuria, dysuria, no musculoskeletal complaints, no strokes or seizures, no skin lesions. EXAMINATION: Elevated heart rates upon admission Normal blood pressure upon admission Blood pressure 120/95 107/95 mmHg Heart rates are still elevated on IV Cardizem Breath sounds are clear no rhonchi no crackles Heart sounds tachycardic REVIEW OF LABS, ECG & MEDICAL DATA Hemoglobin 16.3 Sodium 136, potassium 4.0 Past Medical History Past Medical History: Hypertension Additional Past Medical History / Comment(s): shingles April 2023. Pneumonia July 2023. New Afib History of Any Multi-Drug Resistant Organisms: None Reported Past Surgical History: Hernia Repair Additional Past Surgical History / Comment(s): Right knee replacement Past Anesthesia/Blood Transfusion Reactions: No Reported Reaction Past Psychological History: No Psychological Hx Reported Past Alcohol Use History: None Reported Past Drug Use History: None Reported Medications and Allergies Home Medications Medication Instructions Recorded Confirmed Type Metoprolol Succinate (ER) [Toprol 25 mg PO DAILY 08/25/23 08/25/23 History Xl] amLODIPine [Norvasc] 10 mg PO DAILY 08/25/23 08/25/23 History Allergies Allergy/AdvReac Type Severity Reaction Status Date / Time bee pollen Allergy Rash/Hives Verified 08/25/23 21:50 Physical Exam Vitals: Vital Signs Temp Pulse Resp BP Pulse Ox 08/26/23 15:00 126 H 19 122/101 94 L 08/26/23 14:30 133 H 19 120/91 93 L 08/26/23 14:00 156 H 20 112/82 93 L 08/26/23 13:30 108 H 17 93 L 08/26/23 13:00 135 H 10 L 120/95 93 L 08/26/23 12:30 161 H 14 107/95 89 L 08/26/23 12:00 98.3 F 137 H 10 L 109/94 92 L 08/26/23 07:52 97.9 F 160 H 16 134/100 94 L 08/26/23 06:00 142 H 18 100/72 96 08/26/23 05:00 160 H 12 123/105 95 08/26/23 04:00 161 H 21 93 L 08/26/23 03:00 140 H 18 120/110 94 L 08/26/23 02:00 112 H 19 126/114 97 08/26/23 01:01 126/114 08/26/23 00:10 151 H 18 126/114 94 L 08/26/23 00:00 170 H 18 116/91 96 08/25/23 23:00 120/82 08/25/23 22:00 144/93 98 08/25/23 21:17 97 08/25/23 21:14 98.2 F 70 18 144/93 96 08/25/23 17:02 98 F 95 16 121/88 99 Intake and Output 08/26/23 08/26/23 08/26/23 06:59 14:59 22:59 Intake Total 100.762 560.833 Output Total 0 Balance 100.762 560.833 Intake: IV 310 Sodium Chloride 0.9% 1, 210 000 ml @ 35 mls/hr IV . Q24H [facility] Rx#:[id number] Intake, IV Titration 100.762 0.833 Amount Alteplase 6 mg In Sodium 0.833 Chloride 0.9% 144 ml @ 1 MG/HR 25 mls/hr IV .Q6H [facility] Rx#:[id number] Heparin Sod,Pork in 0.45% 100.762 NaCl 25,000 unit In 0.45 % NaCl 1 250ml.bag @ 18 UNITS/KG/HR 14.533 mls/hr IV .[id number] [facility] Rx#: [id number] Blood Product 250 Output: Urine 0 Other: Voiding Method Urinal Weight 80.739 kg Results 08/26/23 04:28 08/26/23 00:01 Cardiac Enzymes 08/26/23 08/26/23 Range/Units 00:01 08:15 AST 27 (17-59) U/L Troponin I <0.012 (0.000-0.034) ng/mL Coagulation 08/25/23 08/26/23 08/26/23 Range/Units 22:10 04:28 12:25 PT 12.4 (10.0-12.5) sec APTT 25.9 96.9 H 30.7 H (22.0-30.0) sec CBC 08/25/23 08/26/23 Range/Units 22:10 04:28 WBC 10.2 9.6 (3.8-10.6) k/uL RBC 5.35 5.28 (4.30-5.90) m/uL Hgb 16.8 16.3 (13.0-17.5) gm/dL Hct 50.4 50.6 (39.0-53.0) % Plt Count 164 154 (150-450) k/uL Comprehensive Metabolic Panel 08/26/23 Range/Units 00:01 Sodium 136 L (137-145) mmol/L Potassium 4.0 (3.5-5.1) mmol/L Chloride 105 (98-107) mmol/L Carbon Dioxide 21 L (22-30) mmol/L BUN 10 (9-20) mg/dL Creatinine 0.49 L (0.66-1.25) mg/dL Glucose 106 H (74-99) mg/dL Calcium 9.2 (8.4-10.2) mg/dL AST 27 (17-59) U/L ALT 24 (4-49) U/L Alkaline Phosphatase 103 (38-126) U/L Total Protein 7.3 (6.3-8.2) g/dL Albumin 3.8 (3.5-5.0) g/dL Current Medications Generic Name Dose Route Start Last Admin Trade Name Freq PRN Reason Stop Dose Admin Acetaminophen 650 mg 08/25/23 21:23 Acetaminophen Tab 325 Mg Tab PO Q6HR PRN Mild Pain or Fever > 100.5 Al Hydroxide/Mg Hydroxide 15 ml 08/25/23 21:23 Mag Hydrox/Al Hydrox/Simeth 30 Ml Cup PO Q6HR PRN Indigestion Amiodarone HCl 200 mg 08/26/23 13:30 08/26/23 13:35 Amiodarone 200 Mg Tab PO 200 mg BID LIT Administration Sodium Chloride 1,000 mls @ 35 mls/hr 08/25/23 21:30 08/26/23 11:55 Saline 0.9% IV 35 mls/hr .Q24H [facility] Administration Diltiazem HCl 125 mg/ Sodium 125 mls @ 0 mls/hr 08/26/23 08:45 Chloride IV .Q0M LIT Protocol Per Protocol Sodium Chloride 1,000 mls @ 35 mls/hr 08/26/23 09:00 08/26/23 10:44 Saline 0.9% IV 0 mls .Q24H LIT Administration Sodium Chloride 1,000 mls @ 35 mls/hr 08/26/23 09:00 08/26/23 10:45 Saline 0.9% IV 0 mls .Q24H L[facility] Administration Heparin Sodium/Sodium Chloride 250 mls @ 2.5 mls/hr 08/26/23 09:00 08/26/23 10:42 25,000 unit/ Sodium Chloride IV 0 mls .Q24H LIT Administration Heparin Sodium/Sodium Chloride 250 mls @ 2.5 mls/hr 08/26/23 09:00 08/26/23 10:43 25,000 unit/ Sodium Chloride IV 0 mls .Q24H LIT Administration Naloxone HCl 0.2 mg 08/25/23 21:23 Naloxone 0.4 Mg/Ml 1 Ml Vial IV Q2M PRN Opioid Reversal Intake and Output 08/26/23 08/26/23 08/26/23 06:59 14:59 22:59 Intake Total 100.762 560.833 Output Total 0 Balance 100.762 560.833 Intake: IV 310 Sodium Chloride 0.9% 1, 210 000 ml @ 35 mls/hr IV . Q24H [facility] Rx#:[id number] Intake, IV Titration 100.762 0.833 Amount Alteplase 6 mg In Sodium 0.833 Chloride 0.9% 144 ml @ 1 MG/HR 25 mls/hr IV .Q6H [facility] Rx#:[id number] Heparin Sod,Pork in 0.45% 100.762 NaCl 25,000 unit In 0.45 % NaCl 1 250ml.bag @ 18 UNITS/KG/HR 14.533 mls/hr IV .[id number] [facility] Rx#: [id number] Blood Product 250 Output: Urine 0 Other: Voiding Method Urinal Weight 80.739 kg Patient Weight 08/27/23 06:59 Weight 80.739 kg 08/26/23 04:28 08/26/23 00:01
[2023-08-26] MEDS: DILTIAZEM 125 MG in SODIUM CHLORIDE 0.9% 100 ML IV SCH (16:05)
[2023-08-26 16:45] LABS: Basophils # (A) 0.1 k/uL (0-0.2); Basophils % (A) 1 %; Eosinophils # (A) 0.1 k/uL (0-0.7); Eosinophils % (A) 1 %; HCT 51.4 % (39.0-53.0); HGB 16.3 gm/dL (13.0-17.5); Lymphocytes # (A) 1.3 k/uL (1.0-4.8); Lymphocytes % (A) 15 %; MCH 30.7 pg (25.0-35.0); MCHC 31.7 g/dL (31.0-37.0); MCV 96.7 fL (80.0-100.0); Mean Platelet Volume 8.1; Monocytes # (A) 0.6 k/uL (0-1.0); Monocytes % (A) 6 %; Neutrophils # (A) 6.9 k/uL (1.3-7.7); Neutrophils % (A) 76 %; Platelet Count 157 k/uL (150-450); RBC 5.31 m/uL (4.30-5.90); RDW 13.6 % (11.5-15.5); WBC 9.2 k/uL (3.8-10.6)
[2023-08-26] MEDS ORDERED: HEPARIN SODIUM 1,000 UN/ML (10ML VL) IV PRN (18:15)
[2023-08-27] MEDS: DILTIAZEM 125 MG in SODIUM CHLORIDE 0.9% 100 ML IV SCH ×3 (01:06→18:46)
[2023-08-27] MEDS: HEPARIN SOD,PORK IN 0.45% NACL 25,000 UNIT in 0.45% NACL 1 250ML.BAG IV SCH (05:12)
[2023-08-27 06:16] LABS: Basophils % (A) 0 %; Eosinophils # (A) 0.1 k/uL (0-0.7); Eosinophils % (A) 1 %; HCT 47.5 % (39.0-53.0); HGB 15.4 gm/dL (13.0-17.5); Lymphocytes # (A) 1.6 k/uL (1.0-4.8); Lymphocytes % (A) 19 %; MCHC 32.5 g/dL (31.0-37.0); MCV 95.5 fL (80.0-100.0); Mean Platelet Volume 7.9; Monocytes # (A) 0.6 k/uL (0-1.0); Monocytes % (A) 7 %; Neutrophils % (A) 71 %; Platelet Count 134 k/uL (150-450); RBC 4.97 m/uL (4.30-5.90); RDW 13.7 % (11.5-15.5); WBC 8.5 k/uL (3.8-10.6)
[2023-08-27 06:32] LABS: African American GFR (CKD) >90 (>60 ml/min/1.73 sqM); Anion Gap 10 mmol/L; Blood Urea Nitrogen 10 mg/dL (9-20); Calcium 8.5 mg/dL (8.4-10.2); Carbon Dioxide 17 mmol/L (22-30); Chloride 107 mmol/L (98-107); Glucose 103 mg/dL (74-99); Non-African American GFR(CKD) >90 (>60 ml/min/1.73 sqM); Potassium 4.1 mmol/L (3.5-5.1); Sodium 134 mmol/L (137-145)
--- NOTE | 2023-08-27 08:51 | P.PN ---
Subjective Progress Note Date: 08/27/23 Principal diagnosis: 1: Pulmonary embolus and, status post pulmonary thrombolyzes. 2: Extensive left iliofemoral DVT. 3: Cardiac dysrhythmia. Patient has completed his pulmonary TPA. Indicates his breathing has improved. The infusion catheters and associated sheaths were removed today at bedside. From a vascular surgical standpoint full anticoagulation is appropriate. This w as discussed with cardiology as well as pulmonary medicine. Objective - Vital Signs Vital signs: Vital Signs Temp 98.2 F 08/27/23 04:00 Pulse 118 H 08/27/23 07:00 Resp 24 08/27/23 07:00 BP 125/87 08/27/23 07:00 Pulse Ox 94 L 08/27/23 07:00 FiO2 Intake & Output 08/26/23 08/27/23 08/27/23 18:59 06:59 18:59 Intake Total 6092.590 2733.911 169.308 Output Total 400 400 0 Balance 6055.886 3097.911 169.308 Weight 80.739 kg 82.1 kg Intake: IV 905 1680 140 Sodium Chloride 0.9% 1, 805 1680 140 000 ml @ 35 mls/hr IV . Q24H [facility] Rx#:[id number] Intake, IV Titration 0.833 228.911 29.308 Amount Alteplase 6 mg In Sodium 0.833 Chloride 0.9% 144 ml @ 1 MG/HR 25 mls/hr IV .Q6H [facility] Rx#:[id number] Diltiazem 125 mg In 125 Sodium Chloride 0.9% 100 ml @ Per Protocol IV .Q0M [facility] Rx#:[id number] Heparin Sod,Pork in 0.45% 103.911 29.308 NaCl 25,000 unit In 0.45 % NaCl 1 250ml.bag @ 18 UNITS/KG/HR 14.533 mls/hr IV .[id number] [facility] Rx#: [id number] Oral 750 Output: Urine 400 400 0 Other: Voiding Method Urinal Urinal - Exam Patient is awake and alert. He denies shortness of breath. Puncture wounds are clean and dry after removal of 2 femoral venous sheaths. - Labs CBC & Chem 7: 08/27/23 05:24 08/27/23 05:24 Labs: Abnormal Lab Results - Last 24 Hours (Table) 08/26/23 08/27/23 08/27/23 Range/Units 12:25 05:24 05:24 Plt Count (150-450) k/uL APTT 30.7 H 150.7 H* (22.0-30.0) sec Sodium 134 L (137-145) mmol/L Carbon Dioxide 17 L (22-30) mmol/L Creatinine 0.45 L (0.66-1.25) mg/dL Glucose 103 H (74-99) mg/dL 08/27/23 Range/Units 05:24 Plt Count 134 L (150-450) k/uL APTT (22.0-30.0) sec Sodium (137-145) mmol/L Carbon Dioxide (22-30) mmol/L Creatinine (0.66-1.25) mg/dL Glucose (74-99) mg/dL Assessment and Plan Assessment: 1: Status post pulmonary TPA infusion. 2: Extensive iliofemoral DVT. 3: Cardiac dysrhythmia. Plan: 1: Conversion to oral anticoagulation. 2: Patient will be well served by iliofemoral thrombectomy. This can be scheduled as an outpatient. Time with Patient: Less than 30
--- NOTE | 2023-08-27 10:16 | P.PN ---
Subjective Progress Note Date: 08/27/23 Patient reports chest pain with deep inspiration especially on left side, otherwise, dyspnea has improved. Ongoing lower extremity edema. Heart rates are still in the 140s Gen: awake, alert HEENT: normocephalic, atraumatic, good hearing acuity, moist mucous membranes Resp: good air exchange, breathing comfortably with no accessory muscle use CVS: good distal perfusion x 4, GI: soft, NTTP, ND : no SPT, no CVAT, roldan catheter not present MSK: Bilateral pitting edema, no clubbing Neuro: non-focal, moving all extremities Psych: cooperative, euthymic mood Hospital course: Patient is a 67-year-old male with a PMH of hypertension who presents to the emergency room with complaints of bilateral lower extremity swelling and left lower extremity pain. Lower extremity Doppler in the emergency room revealed a DVT in the entire left leg with EKG showing A. fib with RVR at 160 bpm. Chest CTA revealed findings consistent with bilateral submassive PE with evidence of right heart strain. Laboratory evaluation revealed sodium 136, CO2 21, creatinine 0.49, glucose 106. Assessment: Left lower extremity DVT with bilateral submassive PE with right heart strain Left-sided pulmonary infarct Paroxysmal Afib with RVR, newly diagnosed Chronic conditions: HTN Chronic bilateral lower extremity edema, suspect due to varicose veins, rule out CHF Plan: Continue with heparin infusion status post completed TPA infusion status post EKOS, follow PTT for toxicity Continue Cardizem infusion I would recommend adding beta bessie, will follow up cardiology recommendations and then act accordingly Cardiac monitoring Obtain echocardiogram = EF 45-50%, RVSP of 39 C/w IVFs NS 75 ml/hr discontinued DVT prophylaxis: Heparin infusion The patient is admitted with an anticipated greater than 2 midnight stay for evaluation of acute PE and DVT CODE STATUS: Full Code Discussed with: Patient Anticipated discharge place: Home Objective - Vital Signs Vital signs: Vital Signs Temp 98.0 F 08/27/23 08:00 Pulse 151 H 08/27/23 09:00 Resp 24 08/27/23 09:00 BP 117/98 08/27/23 09:00 Pulse Ox 95 08/27/23 09:00 FiO2 Intake & Output 08/26/23 08/27/23 08/27/23 18:59 06:59 18:59 Intake Total 8814.620 0628.911 309.308 Output Total 400 400 200 Balance 2471.759 5775.911 109.308 Weight 80.739 kg 82.1 kg Intake: IV 905 1680 280 Sodium Chloride 0.9% 1, 805 1680 280 000 ml @ 35 mls/hr IV . Q24H [facility] Rx#:[id number] Intake, IV Titration 0.833 228.911 29.308 Amount Alteplase 6 mg In Sodium 0.833 Chloride 0.9% 144 ml @ 1 MG/HR 25 mls/hr IV .Q6H [facility] Rx#:[id number] Diltiazem 125 mg In 125 Sodium Chloride 0.9% 100 ml @ Per Protocol IV .Q0M [facility] Rx#:[id number] Heparin Sod,Pork in 0.45% 103.911 29.308 NaCl 25,000 unit In 0.45 % NaCl 1 250ml.bag @ 18 UNITS/KG/HR 14.533 mls/hr IV .[id number] [facility] Rx#: [id number] Oral 750 Output: Urine 400 400 200 Other: Voiding Method Urinal Urinal Urinal - Labs CBC & Chem 7: 08/27/23 05:24 08/27/23 05:24 Labs: Abnormal Lab Results - Last 24 Hours (Table) 08/26/23 08/27/23 08/27/23 Range/Units 12:25 05:24 05:24 Plt Count (150-450) k/uL APTT 30.7 H 150.7 H* (22.0-30.0) sec Sodium 134 L (137-145) mmol/L Carbon Dioxide 17 L (22-30) mmol/L Creatinine 0.45 L (0.66-1.25) mg/dL Glucose 103 H (74-99) mg/dL 08/27/23 Range/Units 05:24 Plt Count 134 L (150-450) k/uL APTT (22.0-30.0) sec Sodium (137-145) mmol/L Carbon Dioxide (22-30) mmol/L Creatinine (0.66-1.25) mg/dL Glucose (74-99) mg/dL
--- NOTE | 2023-08-27 10:16 | P.CNPUL ---
History of Present Illness Consult date: 08/27/23 Requesting physician: Alec Gooden Reason for consult: other (Critical care management) Chief complaint: Left leg pain and edema History of present illness: This is a very pleasant 67-year-old male patient history of hypertension who presented to the emergency room on 08/25/2023 with left lower leg edema for 3 days prior. He was having some mild shortness of breath and felt this was due to recovering from pneumonia in the outpatient setting. He denied any chest pain. No recent travel. No prior history of blood clots. He was found to be in atrial fib relation with right rapid ventricular response He did have a slight trauma to the left leg and there is ecchymosis on the jackson area. Doppler of the lower extremity revealed positive for DVT in the entire left leg. CT angiogram revealed very extensive bilateral pulmonary emboli with evidence of right heart strain. Echocardiogram revealed normal low left ventricular systolic function. Normal RV size. Yesterday he was taken to the cardiovascular lab and had undergone placement of bilateral pulmonary artery catheter 2 with initiation of TPA thrombolysis (Ekos). Seen today in consultation in the intensive care unit. Ekos catheters were removed this morning. He is awake and alert in no acute distress. He is maintaining O2 saturations in the 90s on 2 L/m per nasal cannula. He remains in atrial fibrillation with varying ventricular response. He is afebrile. Hemodynamically stable. Count 8.5. Hemoglobin 15.4. Platelets 134. Sodium 134. Potassium 4.1. Bicarb 17. BUN 10. Creatinine 0.45. Glucose 103. He is currently on a Cardizem drip at 15 mg/h and a heparin drip per weight base protocol. He denies any chest pain, worsening shortness of breath. Review of Systems REVIEW OF SYSTEMS: CONSTITUTIONAL: Denies any recent significant weight loss or weight gain. EYES: Denies change in vision. EARS, NOSE, MOUTH, THROAT: Denies headaches, denies sore throat. CARDIOVASCULAR: Denies chest pain, palpitations or syncopal episodes. RESPIRATORY: Positive for shortness of breath, no cough, congestion or hemoptysis. GASTROINTESTINAL: Denies change in appetite, denies abdominal pain GENITOURINARY: Denies hematuria, denies infections. MUSKULOSKELETAL: Positive for left lower extremity pain and swelling. INTEGUMENTARY: Denies rash, denies eczema. NEUROLOGICAL: Denies recent memory loss, no recent seizure activity. PSYCHIATRIC: Denies anxiety, denies depression. HEMATOLOGIC/LYMPHATIC: Denies anemia, denies enlarged lymph nodes. Past Medical History Past Medical History: Hypertension Additional Past Medical History / Comment(s): shingles April 2023. Pneumonia July 2023. New Afib History of Any Multi-Drug Resistant Organisms: None Reported Past Surgical History: Hernia Repair Additional Past Surgical History / Comment(s): Right knee replacement Past Anesthesia/Blood Transfusion Reactions: No Reported Reaction Past Psychological History: No Psychological Hx Reported Past Alcohol Use History: None Reported Past Drug Use History: None Reported Medications and Allergies Home Medications Medication Instructions Recorded Confirmed Type Metoprolol Succinate (ER) [Toprol 25 mg PO DAILY 08/25/23 08/25/23 History Xl] amLODIPine [Norvasc] 10 mg PO DAILY 08/25/23 08/25/23 History Allergies Allergy/AdvReac Type Severity Reaction Status Date / Time bee pollen Allergy Rash/Hives Verified 08/25/23 21:50 Physical Exam Vitals: Vital Signs Temp Pulse Resp BP Pulse Ox 08/27/23 09:00 151 H 24 117/98 95 08/27/23 08:30 116 H 23 122/106 94 L 08/27/23 08:00 98.0 F 144 H 20 114/87 93 L 08/27/23 07:30 116 H 22 114/92 95 08/27/23 07:00 118 H 24 125/87 94 L 08/27/23 06:30 111 H 23 115/91 93 L 08/27/23 06:00 120 H 21 113/91 94 L 08/27/23 05:30 107 H 22 121/88 92 L 08/27/23 05:00 142 H 18 125/107 93 L 08/27/23 04:30 154 H 21 135/61 93 L 08/27/23 04:00 98.2 F 100 24 118/86 93 L 08/27/23 03:30 121 H 23 108/79 92 L 08/27/23 03:00 123 H 25 H 113/95 92 L 08/27/23 02:30 96 24 125/111 93 L 08/27/23 02:00 120 H 25 H 110/100 92 L 08/27/23 01:30 128 H 23 128/85 92 L 08/27/23 01:00 128 H 21 117/98 93 L 08/27/23 00:30 133 H 23 114/94 91 L 08/27/23 00:03 104 H 24 93 L 08/27/23 00:00 99 F 124 H 20 115/86 93 L 08/26/23 23:30 115 H 24 132/92 92 L 08/26/23 23:00 107 H 24 130/100 92 L 08/26/23 22:30 116 H 24 114/85 91 L 08/26/23 22:00 100.1 F H 122 H 20 131/98 91 L 08/26/23 21:30 149 H 24 124/87 91 L 08/26/23 21:00 124 H 20 120/81 92 L 08/26/23 20:30 138 H 24 122/86 91 L 08/26/23 20:00 99.8 F H 117 H 23 134/85 92 L 08/26/23 19:30 142 H 14 126/98 92 L 08/26/23 19:00 149 H 22 128/98 92 L 08/26/23 18:30 144 H 13 116/94 93 L 08/26/23 18:00 121 H 29 H 131/95 92 L 08/26/23 17:30 144 H 22 140/115 92 L 08/26/23 17:00 156 H 23 128/108 93 L 08/26/23 16:30 121 H 24 126/87 92 L 08/26/23 16:00 97.9 F 122 H 23 112/90 93 L 08/26/23 15:30 129 H 18 126/95 93 L 08/26/23 15:00 126 H 19 122/101 94 L 08/26/23 14:30 133 H 19 120/91 93 L 08/26/23 14:00 156 H 20 112/82 93 L 08/26/23 13:30 108 H 17 93 L 08/26/23 13:00 135 H 10 L 120/95 93 L 08/26/23 12:30 161 H 14 107/95 89 L 08/26/23 12:00 98.3 F 137 H 10 L 109/94 92 L Intake and Output 08/26/23 08/27/23 08/27/23 22:59 06:59 14:59 Intake Total 1550 1348.911 309.308 Output Total 600 200 200 Balance 950 1148.911 109.308 Intake: IV 1050 1120 280 Sodium Chloride 0.9% 1, 1050 1120 280 000 ml @ 35 mls/hr IV . Q24H [facility] Rx#:[id number] Intake, IV Titration 228.911 29.308 Amount Diltiazem 125 mg In 125 Sodium Chloride 0.9% 100 ml @ Per Protocol IV .Q0M [facility] Rx#:[id number] Heparin Sod,Pork in 0.45% 103.911 29.308 NaCl 25,000 unit In 0.45 % NaCl 1 250ml.bag @ 18 UNITS/KG/HR 14.533 mls/hr IV .[id number] [facility] Rx#: [id number] Oral 500 Output: Urine 600 200 200 Other: Voiding Method Urinal Urinal Urinal Weight 82.1 kg GENERAL EXAM: Alert, very pleasant 67-year-old male, on 3 L nasal cannula, fairly comfortable in no apparent distress. HEAD: Normocephalic. EYES: Normal reaction of pupils, equal size. NOSE: Clear with pink turbinates. THROAT: No erythema or exudates. NECK: No masses, no JVD. CHEST: No chest wall deformity. LUNGS: Equal air entry with crackles in the bilateral bases, no wheeze, rhonchi or dullness. CVS: S1 and S2 normal with no audible murmur, irregular rhythm. ABDOMEN: No hepatosplenomegaly, normal bowel sounds, no guarding or rigidity. SPINE: No scoliosis or deformity SKIN: No rashes CENTRAL NERVOUS SYSTEM: No focal deficits, tone is normal in all 4 extremities. EXTREMITIES: Femoral puncture sites clean and dry. There is no peripheral edema. No clubbing, no cyanosis. Peripheral pulses are intact. Results - Laboratory Findings CBC and BMP: 08/27/23 05:24 08/27/23 05:24 PT/INR, D-dimer PT 12.4 sec (10.0-12.5) 08/25/23 22:10 INR 1.2 (<1.2) H 08/25/23 22:10 Abnormal lab findings: Abnormal Labs 08/25/23 08/26/23 08/26/23 22:10 00:01 04:28 Plt Count INR 1.2 H APTT 96.9 H Sodium 136 L Carbon Dioxide 21 L Creatinine 0.49 L Glucose 106 H 08/26/23 08/27/23 08/27/23 12:25 05:24 05:24 Plt Count INR APTT 30.7 H 150.7 H* Sodium 134 L Carbon Dioxide 17 L Creatinine 0.45 L Glucose 103 H 08/27/23 05:24 Plt Count 134 L INR APTT Sodium Carbon Dioxide Creatinine Glucose - Diagnostic Findings Chest x-ray: image reviewed CT scan - chest: image reviewed Assessment and Plan Assessment: Acute hypoxemic respiratory failure secondary to acute bilateral pulmonary emboli with right heart strain requiring Ekos procedure on 08/26/2023 Acute left lower extremity DVT New-onset atrial fibrillation with rapid ventricular response History of hypertension Plan: The patient was seen and evaluated Ekos procedure, CT angiogram, Doppler, medications and labs reviewed He is currently stable and on 3 L nasal cannula Currently on a heparin drip Currently on a Cardizem drip We will continue to monitor him closely here in the intensive care unit We will make further recommendations based on his clinical status I have personally seen and examined the patient, performed the documentation and the assessment and plan as written. Number of minutes spent on the visit: 20.
--- NOTE | 2023-08-27 14:31 | P.PN ---
Subjective Progress Note Date: 08/27/23 The patient 67-year-old male is currently admitted to the hospital with submassive pulmonary emboli. The patient underwent EKOS procedure. Infusion catheters were removed today by vascular surgery. The patient remains in atrial for ablation with RVR. Heart rates up into the 130s. He is maxed on Cardizem at 15. The patient states he does have some mild discomfort to deep inspiration. No difficulty breathing. Patient is resting comfortably flat in bed. GENERAL: Well-appearing, well-nourished and in no acute distress. NECK: Supple without JVD or thyromegaly. LUNGS: Breath sounds clear to auscultation bilaterally. Respiration equal and unlabored. No wheezes, rales or rhonchi. HEART: Irregular rate and rhythm without murmurs, rubs or gallops. S1 and S2 heard. Notably tachycardic. EXTREMITIES: Normal range of motion, moderate left lower extremity edema throughout with discoloration. Left posttibial pulse, left pedal pulse absent. Strong pulses on the right Oozing from right groin procedure site, sanguinous. TELEMETRY: Atrial fibrillation with elevated heart rates IMPRESSION: Atrial fibrillation with RVR Submassive bilateral pulmonary emboli Status post EKOS procedure Left lower extremity DVT History of hypertension PLAN: Recommend anticoagulation for atrial fibrillation Continue IV Cardizem for rate control Consider adding antiarrhythmic once patient is adequately anticoagulated Further recommendations based on clinical course I am dictating on behalf of Dr Alec Gooden's history/physical and assessment/plan. Objective - Vital Signs Vital signs: Vital Signs Temp 98.0 F 08/27/23 08:00 Pulse 129 H 08/27/23 12:00 Resp 25 H 08/27/23 12:00 BP 122/106 08/27/23 12:00 Pulse Ox 94 L 08/27/23 12:00 FiO2 Intake & Output 08/26/23 08/27/23 08/27/23 18:59 06:59 18:59 Intake Total 3595.453 9858.911 1184.308 Output Total 400 400 400 Balance 0289.985 4518.911 784.308 Weight 80.739 kg 82.1 kg Intake: IV 905 1680 280 Sodium Chloride 0.9% 1, 805 1680 280 000 ml @ 35 mls/hr IV . Q24H [facility] Rx#:[id number] Intake, IV Titration 0.833 228.911 154.308 Amount Alteplase 6 mg In Sodium 0.833 Chloride 0.9% 144 ml @ 1 MG/HR 25 mls/hr IV .Q6H [facility] Rx#:[id number] Diltiazem 125 mg In 125 125 Sodium Chloride 0.9% 100 ml @ Per Protocol IV .Q0M [facility] Rx#:[id number] Heparin Sod,Pork in 0.45% 103.911 29.308 NaCl 25,000 unit In 0.45 % NaCl 1 250ml.bag @ 18 UNITS/KG/HR 14.533 mls/hr IV .[id number] [facility] Rx#: [id number] Oral 750 750 Output: Urine 400 400 400 Other: Voiding Method Urinal Urinal Urinal - Labs CBC & Chem 7: 08/27/23 05:24 08/27/23 05:24 Labs: Abnormal Lab Results - Last 24 Hours (Table) 08/27/23 08/27/23 08/27/23 Range/Units 05:24 05:24 05:24 Plt Count 134 L (150-450) k/uL APTT 150.7 H* (22.0-30.0) sec Sodium 134 L (137-145) mmol/L Carbon Dioxide 17 L (22-30) mmol/L Creatinine 0.45 L (0.66-1.25) mg/dL Glucose 103 H (74-99) mg/dL
[2023-08-28] MEDS: HEPARIN SOD,PORK IN 0.45% NACL 25,000 UNIT in 0.45% NACL 1 250ML.BAG IV SCH ×3 (00:28→17:54)
[2023-08-28 04:05] LABS: Basophils % (A) 1 %; Eosinophils # (A) 0.1 k/uL (0-0.7); Eosinophils % (A) 2 %; HCT 47.7 % (39.0-53.0); HGB 15.1 gm/dL (13.0-17.5); Lymphocytes # (A) 1.4 k/uL (1.0-4.8); Lymphocytes % (A) 18 %; MCH 30.1 pg (25.0-35.0); MCHC 31.7 g/dL (31.0-37.0); MCV 95.1 fL (80.0-100.0); Mean Platelet Volume 8.2; Monocytes # (A) 0.6 k/uL (0-1.0); Monocytes % (A) 7 %; Neutrophils # (A) 5.5 k/uL (1.3-7.7); Neutrophils % (A) 70 %; Platelet Count 149 k/uL (150-450); RBC 5.02 m/uL (4.30-5.90); RDW 13.6 % (11.5-15.5); WBC 7.9 k/uL (3.8-10.6)
[2023-08-28 04:24] LABS: African American GFR (CKD) >90 (>60 ml/min/1.73 sqM); Anion Gap 11 mmol/L; Blood Urea Nitrogen 11 mg/dL (9-20); Calcium 8.3 mg/dL (8.4-10.2); Carbon Dioxide 15 mmol/L (22-30); Chloride 108 mmol/L (98-107); Glucose 91 mg/dL (74-99); Magnesium 1.7 mg/dL (1.6-2.3); Non-African American GFR(CKD) >90 (>60 ml/min/1.73 sqM); Potassium 3.8 mmol/L (3.5-5.1); Sodium 134 mmol/L (137-145)
[2023-08-28] MEDS: DILTIAZEM 125 MG in SODIUM CHLORIDE 0.9% 100 ML IV SCH ×2 (04:37→13:16)
[2023-08-28] MEDS: DILTIAZEM CD 120 MG CAP.ER.24H PO SCH ×2 (09:34→20:06)
--- NOTE | 2023-08-28 09:50 | P.PN ---
Subjective Progress Note Date: 08/28/23 Principal diagnosis: 1: Pulmonary embolus and, status post pulmonary thrombolyzes. 2: Extensive left iliofemoral DVT. 3: Cardiac dysrhythmia. Patient denies any leg or abdominal pain at this time. He indicates his respiratory status is significantly improved Objective - Vital Signs Vital signs: Vital Signs Temp 98.6 F 08/28/23 08:00 Pulse 108 H 08/28/23 08:00 Resp 25 H 08/28/23 08:00 BP 110/91 08/28/23 08:00 Pulse Ox 99 08/28/23 08:00 FiO2 Intake & Output 08/27/23 08/28/23 08/28/23 18:59 06:59 18:59 Intake Total 6872.433 0812.565 236 Output Total 400 1025 225 Balance 858.058 12.565 11 Weight 83 kg Intake: IV 280 Sodium Chloride 0.9% 1, 280 000 ml @ 35 mls/hr IV . Q24H [facility] Rx#:[id number] Intake, IV Titration 228.058 317.565 Amount Diltiazem 125 mg In 198.75 125 Sodium Chloride 0.9% 100 ml @ Per Protocol IV .Q0M [facility] Rx#:[id number] Heparin Sod,Pork in 0.45% 29.308 192.565 NaCl 25,000 unit In 0.45 % NaCl 1 250ml.bag @ 18 UNITS/KG/HR 14.533 mls/hr IV .[id number] [facility] Rx#: [id number] Oral 750 720 236 Output: Urine 400 1025 225 Other: Voiding Method Urinal Urinal Urinal # Voids 1 - Labs CBC & Chem 7: 08/28/23 03:44 08/28/23 03:44 Labs: Abnormal Lab Results - Last 24 Hours (Table) 08/27/23 08/28/23 08/28/23 Range/Units 14:38 03:44 03:44 Plt Count 149 L (150-450) k/uL APTT 50.5 H 48.4 H (22.0-30.0) sec Sodium (137-145) mmol/L Chloride (98-107) mmol/L Carbon Dioxide (22-30) mmol/L Creatinine (0.66-1.25) mg/dL Calcium (8.4-10.2) mg/dL 08/28/23 Range/Units 03:44 Plt Count (150-450) k/uL APTT (22.0-30.0) sec Sodium 134 L (137-145) mmol/L Chloride 108 H (98-107) mmol/L Carbon Dioxide 15 L (22-30) mmol/L Creatinine 0.47 L (0.66-1.25) mg/dL Calcium 8.3 L (8.4-10.2) mg/dL Assessment and Plan Assessment: 1: Status post pulmonary TPA infusion. 2: Extensive iliofemoral DVT. 3: Cardiac dysrhythmia. Plan: 1: Conversion to oral anticoagulation. 2: Patient will be well served by iliofemoral thrombectomy. This can be scheduled as an outpatient. 3: Situation was discussed with attending research test engine operator. 4: We will sign off. We'll reevaluate your request. Time with Patient: Less than 30
--- NOTE | 2023-08-28 10:16 | P.PN ---
Subjective Progress Note Date: 08/28/23 This is a very pleasant 67-year-old male patient history of hypertension who presented to the emergency room on 08/25/2023 with left lower leg edema for 3 days prior. He was having some mild shortness of breath and felt this was due to recovering from pneumonia in the outpatient setting. He denied any chest pain. No recent travel. No prior history of blood clots. He was found to be in atrial fib relation with right rapid ventricular response He did have a slight trauma to the left leg and there is ecchymosis on the jackson area. Doppler of the lower extremity revealed positive for DVT in the entire left leg. CT angiogram revealed very extensive bilateral pulmonary emboli with evidence of right heart strain. Echocardiogram revealed normal low left ventricular systolic function. Normal RV size. Yesterday he was taken to the cardiovascular lab and had undergone placement of bilateral pulmonary artery catheter 2 with initiation of TPA thrombolysis (Ekos). Seen today in consultation in the intensive care unit. Ekos catheters were removed this morning. He is awake and alert in no acute distress. He is maintaining O2 saturations in the 90s on 2 L/m per nasal cannula. He remains in atrial fibrillation with varying ventricular response. He is afebrile. Hemodynamically stable. Count 8.5. Hemoglobin 15.4. Platelets 134. Sodium 134. Potassium 4.1. Bicarb 17. BUN 10. Creatinine 0.45. Glucose 103. He is currently on a Cardizem drip at 15 mg/h and a heparin drip per weight base protocol. He denies any chest pain, worsening shortness of breath. The patient is seen today in follow-up in the intensive care unit. He is currently sitting up in bed. Awake and alert in no acute distress. He still is in atrial fibrillation with rapid ventricular response. He is on a Cardizem drip at 15 mg per hour. Continued on a heparin drip. Maintain O2 saturations in the 90s on 2 L/m per nasal cannula. He is status post Ekos procedure. Catheters were removed yesterday. Count 10.9. Hemoglobin 15.1 platelets 149. Sodium 134. Potassium 3.8. Bicarb 15. BUN 11. Creatinine 0.47. Glucose 91. Objective - Vital Signs Vital signs: Vital Signs Temp 98.6 F 08/28/23 08:00 Pulse 108 H 08/28/23 08:00 Resp 25 H 08/28/23 08:00 BP 110/91 08/28/23 08:00 Pulse Ox 99 08/28/23 08:00 FiO2 Intake & Output 08/27/23 08/28/23 08/28/23 18:59 06:59 18:59 Intake Total 9081.250 4465.565 319 Output Total 400 1025 225 Balance 858.058 12.565 94 Weight 83 kg Intake: IV 280 Sodium Chloride 0.9% 1, 280 000 ml @ 35 mls/hr IV . Q24H [facility] Rx#:[id number] Intake, IV Titration 228.058 317.565 83 Amount Diltiazem 125 mg In 198.75 125 83 Sodium Chloride 0.9% 100 ml @ Per Protocol IV .Q0M [facility] Rx#:[id number] Heparin Sod,Pork in 0.45% 29.308 192.565 NaCl 25,000 unit In 0.45 % NaCl 1 250ml.bag @ 18 UNITS/KG/HR 14.533 mls/hr IV .[id number] [facility] Rx#: [id number] Oral 750 720 236 Output: Urine 400 1025 225 Other: Voiding Method Urinal Urinal Urinal # Voids 1 - Exam GENERAL EXAM: Alert, pleasant 67-year-old male, on 2 L nasal cannula, comfortable in no apparent distress. HEAD: Normocephalic. EYES: Normal reaction of pupils, equal size. NOSE: Clear with pink turbinates. THROAT: No erythema or exudates. NECK: No masses, no JVD. CHEST: No chest wall deformity. LUNGS: Equal air entry with crackles in the bilateral bases, no wheeze, rhonchi or dullness. CVS: S1 and S2 normal with no audible murmur, irregular rhythm. ABDOMEN: No hepatosplenomegaly, normal bowel sounds, no guarding or rigidity. SPINE: No scoliosis or deformity SKIN: No rashes CENTRAL NERVOUS SYSTEM: No focal deficits, tone is normal in all 4 extremities. EXTREMITIES: Femoral puncture sites clean and dry. There is no peripheral willian a. No clubbing, no cyanosis. Peripheral pulses are intact. - Labs CBC & Chem 7: 08/28/23 03:44 08/28/23 03:44 Labs: Abnormal Lab Results - Last 24 Hours (Table) 08/27/23 08/28/23 08/28/23 Range/Units 14:38 03:44 03:44 Plt Count 149 L (150-450) k/uL APTT 50.5 H 48.4 H (22.0-30.0) sec Sodium (137-145) mmol/L Chloride (98-107) mmol/L Carbon Dioxide (22-30) mmol/L Creatinine (0.66-1.25) mg/dL Calcium (8.4-10.2) mg/dL 08/28/23 Range/Units 03:44 Plt Count (150-450) k/uL APTT (22.0-30.0) sec Sodium 134 L (137-145) mmol/L Chloride 108 H (98-107) mmol/L Carbon Dioxide 15 L (22-30) mmol/L Creatinine 0.47 L (0.66-1.25) mg/dL Calcium 8.3 L (8.4-10.2) mg/dL Assessment and Plan Assessment: Acute hypoxemic respiratory failure secondary to acute bilateral pulmonary emboli with right heart strain requiring Ekos procedure on 08/26/2023 Acute left lower extremity DVT New-onset atrial fibrillation with rapid ventricular response History of hypertension Plan: The patient was seen and evaluated Medications and labs reviewed Currently on a heparin drip Currently on a Cardizem drip Being followed by cardiology and vascular surgery Currently on 2 L/m per nasal cannula, titrate the FiO2 as tolerated We'll continue to follow I have personally seen and examined the patient, performed the documentation and the assessment and plan as written. Number of minutes spent on the visit: 10.
--- NOTE | 2023-08-28 10:19 | P.PN ---
Subjective Progress Note Date: 08/28/23 Patient reports chest pain with deep inspiration especially on left side, otherwise, dyspnea has improved. Ongoing lower extremity edema. Heart rates are still in the 140s Gen: awake, alert HEENT: normocephalic, atraumatic, good hearing acuity, moist mucous membranes Resp: good air exchange, breathing comfortably with no accessory muscle use CVS: good distal perfusion x 4, GI: soft, NTTP, ND : no SPT, no CVAT, roldan catheter not present MSK: Bilateral pitting edema, no clubbing Neuro: non-focal, moving all extremities Psych: cooperative, euthymic mood Hospital course: Patient is a 67-year-old male with a PMH of hypertension who presents to the emergency room with complaints of bilateral lower extremity swelling and left lower extremity pain. Lower extremity Doppler in the emergency room revealed a DVT in the entire left leg with EKG showing A. fib with RVR at 160 bpm. Chest CTA revealed findings consistent with bilateral submassive PE with evidence of right heart strain. Laboratory evaluation revealed sodium 136, CO2 21, creatinine 0.49, glucose 106. Assessment: Left lower extremity DVT with bilateral submassive PE with right heart strain Left-sided pulmonary infarct Paroxysmal Afib with RVR, newly diagnosed Chronic conditions: HTN Chronic bilateral lower extremity edema, suspect due to varicose veins, rule out CHF Plan: Continue with heparin infusion status post completed TPA infusion status post EKOS, follow PTT for toxicity Continue Cardizem infusion I would recommend adding beta bessie, will follow up cardiology recommendations and then act accordingly Cardiac monitoring Obtain echocardiogram = EF 45-50%, RVSP of 39 C/w IVFs NS 75 ml/hr discontinued DVT prophylaxis: Heparin infusion The patient is admitted with an anticipated greater than 2 midnight stay for evaluation of acute PE and DVT CODE STATUS: Full Code Discussed with: Patient Anticipated discharge place: Home Objective - Vital Signs Vital signs: Vital Signs Temp 98.6 F 08/28/23 08:00 Pulse 108 H 08/28/23 08:00 Resp 25 H 08/28/23 08:00 BP 110/91 08/28/23 08:00 Pulse Ox 99 08/28/23 08:00 FiO2 Intake & Output 08/27/23 08/28/23 08/28/23 18:59 06:59 18:59 Intake Total 6740.350 6557.565 319 Output Total 400 1025 225 Balance 858.058 12.565 94 Weight 83 kg Intake: IV 280 Sodium Chloride 0.9% 1, 280 000 ml @ 35 mls/hr IV . Q24H [facility] Rx#:[id number] Intake, IV Titration 228.058 317.565 83 Amount Diltiazem 125 mg In 198.75 125 83 Sodium Chloride 0.9% 100 ml @ Per Protocol IV .Q0M [facility] Rx#:[id number] Heparin Sod,Pork in 0.45% 29.308 192.565 NaCl 25,000 unit In 0.45 % NaCl 1 250ml.bag @ 18 UNITS/KG/HR 14.533 mls/hr IV .[id number] [facility] Rx#: [id number] Oral 750 720 236 Output: Urine 400 1025 225 Other: Voiding Method Urinal Urinal Urinal # Voids 1 - Labs CBC & Chem 7: 08/28/23 03:44 08/28/23 03:44 Labs: Abnormal Lab Results - Last 24 Hours (Table) 08/27/23 08/28/23 08/28/23 Range/Units 14:38 03:44 03:44 Plt Count 149 L (150-450) k/uL APTT 50.5 H 48.4 H (22.0-30.0) sec Sodium (137-145) mmol/L Chloride (98-107) mmol/L Carbon Dioxide (22-30) mmol/L Creatinine (0.66-1.25) mg/dL Calcium (8.4-10.2) mg/dL 08/28/23 Range/Units 03:44 Plt Count (150-450) k/uL APTT (22.0-30.0) sec Sodium 134 L (137-145) mmol/L Chloride 108 H (98-107) mmol/L Carbon Dioxide 15 L (22-30) mmol/L Creatinine 0.47 L (0.66-1.25) mg/dL Calcium 8.3 L (8.4-10.2) mg/dL
--- NOTE | 2023-08-28 11:39 | P.PN ---
Subjective Patient is resting comfortably in bed No chest discomfort no shortness of breath There has been significant reduction in his left lower extremity swelling His atrial fibrillation rates which were uncontrolled previously on IV Cardizem are now better controlled denies ventricular rates are about 120 beats a minute approximately He is very sure that 1 before he came to [facility] he was in normal rhythm and he was not in A. fib The A. fib began on the same day that he walked in He was started on IV heparin in the ER After 10 hours of TPA infusion he went back to IV heparin So for most part he has been on IV heparin Pulse rate 108-124 beats a minute, respirations 18, blood pressure 120/84 mmHg Heart sounds irregular no murmurs Breath sounds reduced air entry bilaterally but no rhonchi no crackles Bruising all over especially the lower extremities but no significant swelling now His right groin from access site is healed well no hematoma Impression Bilateral extensive pulmonary embolism Computed tomography scan suggests mild RV enlargement with a strain Extensive left lower extremity DVT Unclear as to why this gentleman developed an unprovoked extensive DVT with pulmonary thrombi embolism Suggest At least 36-48 hours of high dose IV heparin before starting oral anticoagulation Oral anticoagulation to be started tomorrow, preferably with a heparin of about 6 hours Outpatient workup for DVT and PE causes Continue IV Cardizem for now I have avoided IV amiodarone for now because of the extensiveness of the pulmonary embolism that could've affected his diffusion capacity Hopefully as his lungs get better, his A. fib rates are better controlled At this time he is minimally sent back from atrial fibrillation and from a pulmonary standpoint he is actually doing very well Outpatient follow-up with Dr. Cancino after 2 weeks Objective - Vital Signs Vital signs: Vital Signs Temp 98.6 F 08/28/23 08:00 Pulse 108 H 08/28/23 08:00 Resp 25 H 08/28/23 08:00 BP 110/91 08/28/23 08:00 Pulse Ox 99 08/28/23 08:00 FiO2 Intake & Output 08/27/23 08/28/23 08/28/23 18:59 06:59 18:59 Intake Total 2111.251 1201.565 319 Output Total 400 1025 225 Balance 858.058 12.565 94 Weight 83 kg Intake: IV 280 Sodium Chloride 0.9% 1, 280 000 ml @ 35 mls/hr IV . Q24H [facility] Rx#:[id number] Intake, IV Titration 228.058 317.565 83 Amount Diltiazem 125 mg In 198.75 125 83 Sodium Chloride 0.9% 100 ml @ Per Protocol IV .Q0M [facility] Rx#:[id number] Heparin Sod,Pork in 0.45% 29.308 192.565 NaCl 25,000 unit In 0.45 % NaCl 1 250ml.bag @ 18 UNITS/KG/HR 14.533 mls/hr IV .[id number] [facility] Rx#: [id number] Oral 750 720 236 Output: Urine 400 1025 225 Other: Voiding Method Urinal Urinal Urinal # Voids 1 - Labs CBC & Chem 7: 08/28/23 03:44 08/28/23 03:44 Labs: Abnormal Lab Results - Last 24 Hours (Table) 08/27/23 08/28/23 08/28/23 Range/Units 14:38 03:44 03:44 Plt Count 149 L (150-450) k/uL APTT 50.5 H 48.4 H (22.0-30.0) sec Sodium (137-145) mmol/L Chloride (98-107) mmol/L Carbon Dioxide (22-30) mmol/L Creatinine (0.66-1.25) mg/dL Calcium (8.4-10.2) mg/dL 08/28/23 Range/Units 03:44 Plt Count (150-450) k/uL APTT (22.0-30.0) sec Sodium 134 L (137-145) mmol/L Chloride 108 H (98-107) mmol/L Carbon Dioxide 15 L (22-30) mmol/L Creatinine 0.47 L (0.66-1.25) mg/dL Calcium 8.3 L (8.4-10.2) mg/dL
[2023-08-29 05:42] LABS: Basophils # (A) 0.1 k/uL (0-0.2); Basophils % (A) 1 %; Eosinophils # (A) 0.3 k/uL (0-0.7); Eosinophils % (A) 5 %; HCT 46.2 % (39.0-53.0); HGB 15.1 gm/dL (13.0-17.5); Lymphocytes # (A) 1.3 k/uL (1.0-4.8); Lymphocytes % (A) 20 %; MCH 30.6 pg (25.0-35.0); MCHC 32.6 g/dL (31.0-37.0); MCV 93.9 fL (80.0-100.0); Mean Platelet Volume 7.9; Monocytes # (A) 0.4 k/uL (0-1.0); Monocytes % (A) 7 %; Neutrophils # (A) 4.2 k/uL (1.3-7.7); Neutrophils % (A) 65 %; Platelet Count 179 k/uL (150-450); RBC 4.92 m/uL (4.30-5.90); RDW 13.7 % (11.5-15.5); WBC 6.5 k/uL (3.8-10.6)
[2023-08-29 05:55] LABS: African American GFR (CKD) >90 (>60 ml/min/1.73 sqM); Anion Gap 9 mmol/L; Blood Urea Nitrogen 8 mg/dL (9-20); Calcium 8.6 mg/dL (8.4-10.2); Carbon Dioxide 19 mmol/L (22-30); Chloride 108 mmol/L (98-107); Glucose 97 mg/dL (74-99); Magnesium 1.8 mg/dL (1.6-2.3); Non-African American GFR(CKD) >90 (>60 ml/min/1.73 sqM); Potassium 3.8 mmol/L (3.5-5.1); Sodium 136 mmol/L (137-145)
--- NOTE | 2023-08-29 07:42 | P.PN ---
Subjective Progress Note Date: 08/29/23 PROGRESS NOTE The patient is a 67-year-old male who presented with extensive DVT and evidence of PE. He underwent EKOS. He was in atrial fibrillation. According to the patient he had a brief episode of atrial fibrillation in the past but no further documentations. He's feeling well this morning. He denies any chest discomfort, dizziness or palpitations. He continues to be in atrial fibrillation on IV Cardizem. Hemodynamically stable. On IV heparin. He denies any nausea or vomiting. Medications: IV Cardizem, IV heparin PHYSICAL EXAMINATION: Blood pressure 111/80 heart rate 90 LUNGS: Clear to auscultation HEART: Regular rate and rhythm, S1, S2. No S3. No systolic murmur ABDOMEN: Soft, nontender, no organomegaly EXTREMETIES: No edema LAB: Hemoglobin 15.1, potassium 3.8, BUN 8, creatinine 0.44 IMPRESSION: 1. Status post extensive DVT with pulmonary embolism 2. Status post EKOS 3. Atrial fibrillation 4. History of hypertension PLAN: 1. Stop IV heparin and start oral anticoagulation 2. Start beta bessie 3. Stop IV Cardizem 4. Depending on his progress further recommendations will be made. Patient may require thrombectomy as an outpatient of his extensive DVT 5. If he remains in atrial fibrillation as an outpatient further evaluation will be made Objective - Vital Signs Vital signs: Vital Signs Temp 98.6 F 08/29/23 04:00 Pulse 106 H 08/29/23 04:00 Resp 21 08/29/23 04:00 BP 111/86 08/29/23 04:00 Pulse Ox 94 L 08/29/23 04:00 FiO2 Intake & Output 08/28/23 08/29/23 08/29/23 18:59 06:59 18:59 Intake Total 1373.093 492.5 Output Total 1075 1250 400 Balance 298.093 -757.5 -400 Weight 83.3 kg Intake: Intake, IV Titration 387.093 12.5 Amount Diltiazem 125 mg In 175.958 12.5 Sodium Chloride 0.9% 100 ml @ Per Protocol IV .Q0M [facility] Rx#:[id number] Heparin Sod,Pork in 0.45% 211.135 NaCl 25,000 unit In 0.45 % NaCl 1 250ml.bag @ 18 UNITS/KG/HR 14.533 mls/hr IV .[id number] [facility] Rx#: [id number] Oral 986 480 Output: Urine 1075 1250 400 Other: Voiding Method Urinal Urinal # Voids 1 - Labs CBC & Chem 7: 08/29/23 05:27 08/29/23 05:27 Labs: Abnormal Lab Results - Last 24 Hours (Table) 08/29/23 08/29/23 Range/Units 05:27 05:27 APTT 49.7 H (22.0-30.0) sec Sodium 136 L (137-145) mmol/L Chloride 108 H (98-107) mmol/L Carbon Dioxide 19 L (22-30) mmol/L BUN 8 L (9-20) mg/dL Creatinine 0.44 L (0.66-1.25) mg/dL
[2023-08-29] MEDS: DILTIAZEM CD 120 MG CAP.ER.24H PO SCH ×2 (07:56→20:29)
[2023-08-29] MEDS: METOPROLOL TARTRATE 25 MG TAB PO SCH ×2 (07:57→20:29)
[2023-08-29] MEDS: APIXABAN 5 MG TAB PO SCH ×2 (07:57→20:28)
--- NOTE | 2023-08-29 11:09 | P.PN ---
Subjective Progress Note Date: 08/29/23 Hospital Course: Patient is a 67-year-old male with a PMH of hypertension who presents to the emergency room with complaints of bilateral lower extremity swelling and left lower extremity pain. Lower extremity Doppler in the emergency room revealed a DVT in the entire left leg with EKG showing A. fib with RVR at 160 bpm. Chest CTA revealed findings consistent with bilateral submassive PE with evidence of right heart strain. Laboratory evaluation revealed sodium 136, CO2 21, creat inine 0.49, glucose 106. Patient was also in atrial fibrillation with RVR. Vascular surgery was consulted. Status post EKOS. Was on Cardizem drip and heparin drip. Cardiology was consulted. Echocardiogram showed LVEF 45-50%, RVSP 39. Patient now transitioned off of IV medications, started on oral anticoagulation. Remains in medical ICU for close monitoring. Subjective: Patient seen and examined at bedside. No acute events overnight. Denies any chest pain, shortness of breath. Pertinent positives and negatives as discussed above, a complete review of systems was performed and all other systems are negative. Vitals Signs Reviewed. General: nontoxic, no distress, appears at stated age Derm: warm, dry Head: atraumatic, normocephalic, symmetric Eyes: EOMI, no lid lag, anicteric sclera Mouth: no lip lesion, mucus membranes moist Cardiovascular: S1S2 irregular, no murmur Lungs: CTA bilateral, no rhonchi, no rales , no accessory muscle use Abdominal: soft, nontender to palpation, no guarding, no appreciable organomegaly Ext: no gross muscle atrophy, bilateral 2+ pitting edema, no contractures Neuro: CN II-XI grossly intact, no focal neuro deficits Psych: Alert, oriented, appropriate affect Data Reviewed Today: Pertinent Labs: Hemoglobin 15.1, sodium 136, bicarb 19, creatinine 0.44, magnesium 1.8 Imaging: No new imaging Assessment and Plan: Patient is critically ill, remains in medical ICU for close monitoring Acute bilateral submassive PE with right heart strain Acute Left lower extremity DVT Acute Left-sided pulmonary infarct Paroxysmal Afib with RVR, newly diagnosed, rate controlled Non-anion gap metabolic acidosis, improving Chronic conditions: HTN Plan: -Cardiology note reviewed, IV heparin and IV Cardizem discontinued, patient started on Cardizem 120 mg twice a day oral, metoprolol 25 mg twice a day oral, Eliquis 10 mg twice a day -Continue telemetry monitoring -Psychosocial Rehabilitation Counselor also following DVT prophylaxis: Eliquis CODE STATUS: Full Code Anticipated discharge place: Home, likely tomorrow Objective - Vital Signs Vital signs: Vital Signs Temp 98.2 F 08/29/23 08:00 Pulse 111 H 08/29/23 08:00 Resp 28 H 08/29/23 08:00 BP 119/96 08/29/23 08:00 Pulse Ox 93 L 08/29/23 08:00 FiO2 Intake & Output 08/28/23 08/29/23 08/29/23 18:59 06:59 18:59 Intake Total 1373.093 492.5 230.274 Output Total 1075 1250 400 Balance 298.093 -757.5 -169.726 Weight 83.3 kg Intake: Intake, IV Titration 387.093 12.5 230.274 Amount Diltiazem 125 mg In 175.958 12.5 58.5 Sodium Chloride 0.9% 100 ml @ Per Protocol IV .Q0M [facility] Rx#:[id number] Heparin Sod,Pork in 0.45% 211.135 171.774 NaCl 25,000 unit In 0.45 % NaCl 1 250ml.bag @ 18 UNITS/KG/HR 14.533 mls/hr IV .[id number] [facility] Rx#: [id number] Oral [id number] 480 Output: Urine 1075 1250 400 Other: Voiding Method Urinal Urinal # Voids 1 - Labs CBC & Chem 7: 08/29/23 05:27 08/29/23 05:27 Labs: Abnormal Lab Results - Last 24 Hours (Table) 08/29/23 08/29/23 Range/Units 05:27 05:27 APTT 49.7 H (22.0-30.0) sec Sodium 136 L (137-145) mmol/L Chloride 108 H (98-107) mmol/L Carbon Dioxide 19 L (22-30) mmol/L BUN 8 L (9-20) mg/dL Creatinine 0.44 L (0.66-1.25) mg/dL
--- NOTE | 2023-08-29 15:40 | P.PN ---
Subjective Progress Note Date: 08/29/23 This is a very pleasant 67-year-old male patient history of hypertension who presented to the emergency room on 08/25/2023 with left lower leg edema for 3 days prior. He was having some mild shortness of breath and felt this was due to recovering from pneumonia in the outpatient setting. He denied any chest pain. No recent travel. No prior history of blood clots. He was found to be in atrial fib relation with right rapid ventricular response He did have a slight trauma to the left leg and there is ecchymosis on the jackson area. Doppler of the lower extremity revealed positive for DVT in the entire left leg. CT angiogram revealed very extensive bilateral pulmonary emboli with evidence of right heart strain. Echocardiogram revealed normal low left ventricular systolic function. Normal RV size. Yesterday he was taken to the cardiovascular lab and had undergone placement of bilateral pulmonary artery catheter 2 with initiation of TPA thrombolysis (Ekos). Seen today in consultation in the intensive care unit. Ekos catheters were removed this morning. He is awake and alert in no acute distress. He is maintaining O2 saturations in the 90s on 2 L/m per nasal cannula. He remains in atrial fibrillation with varying ventricular response. He is afebrile. Hemodynamically stable. Count 8.5. Hemoglobin 15.4. Platelets 134. Sodium 134. Potassium 4.1. Bicarb 17. BUN 10. Creatinine 0.45. Glucose 103. He is currently on a Cardizem drip at 15 mg/h and a heparin drip per weight base protocol. He denies any chest pain, worsening shortness of breath. The patient is seen today in follow-up in the intensive care unit. He is currently sitting up in bed. Awake and alert in no acute distress. He still is in atrial fibrillation with rapid ventricular response. He is on a Cardizem drip at 15 mg per hour. Continued on a heparin drip. Maintain O2 saturations in the 90s on 2 L/m per nasal cannula. He is status post Ekos procedure. Catheters were removed yesterday. Count 10.9. Hemoglobin 15.1 platelets 149. Sodium 134. Potassium 3.8. Bicarb 15. BUN 11. Creatinine 0.47. Glucose 91. On today's evaluation of 08/29/2023, the patient is doing well. Patient is currently on room air oxygen. The patient's hemodynamics are stable. The patient remains on anticoagulation with Eliquis. The patient has swelling in the left lower extremity related to DVT. The patient completed EKOS therapy for pulmonary embolism. The patient has no hemodynamic instability at this point in time. As mentioned, the patient but the pulmonary embolism and a extensive DVT involving left lower extremity and the patient has a positive DVT involving the entire leg and the patient is going to undergo a thrombectomy at the later stage. Vascular surgeries on the case for now. The blood work shows a WBC count of 6.5, hemoglobin is 15, sodium is 136, potassium 3.8, bicarb is 19, BUN is at 8 with a creatinine of 0.44. No bleeding complications at this point in time. Note that the patient also developed a new onset atrial fibrillation. The rate is controlled for now. The patient is on anticoagulants. The patient is also on oral Cardizem. He is also on metoprolol 25 mg by mouth twice a day. Objective - Vital Signs Vital signs: Vital Signs Temp 98.2 F 08/29/23 08:00 Pulse 111 H 08/29/23 08:00 Resp 28 H 08/29/23 08:00 BP 119/96 08/29/23 08:00 Pulse Ox 93 L 08/29/23 08:00 FiO2 Intake & Output 08/28/23 08/29/23 08/29/23 18:59 06:59 18:59 Intake Total 1373.093 492.5 230.274 Output Total 1075 1250 400 Balance 298.093 -757.5 -169.726 Weight 83.3 kg Intake: Intake, IV Titration 387.093 12.5 230.274 Amount Diltiazem 125 mg In 175.958 12.5 58.5 Sodium Chloride 0.9% 100 ml @ Per Protocol IV .Q0M LIT Rx#:[id number] Heparin Sod,Pork in 0.45% 211.135 171.774 NaCl 25,000 unit In 0.45 % NaCl 1 250ml.bag @ 18 UNITS/KG/HR 14.533 mls/hr IV .[id number] LIT Rx#: [id number] Oral 986 480 Output: Urine 1075 1250 400 Other: Voiding Method Urinal Urinal # Voids 1 - Exam GENERAL EXAM: Alert, pleasant 67-year-old male, on RA, comfortable in no apparent distress. HEAD: Normocephalic. EYES: Normal reaction of pupils, equal size. NOSE: Clear with pink turbinates. THROAT: No erythema or exudates. NECK: No masses, no JVD. CHEST: No chest wall deformity. LUNGS: Equal air entry with crackles in the bilateral bases, no wheeze, rhonchi or dullness. CVS: S1 and S2 normal with no audible murmur, irregular rhythm. ABDOMEN: No hepatosplenomegaly, normal bowel sounds, no guarding or rigidity. SPINE: No scoliosis or deformity SKIN: No rashes CENTRAL NERVOUS SYSTEM: No focal deficits, tone is normal in all 4 extremities. EXTREMITIES: Femoral puncture sites clean and dry. There is no peripheral edema. No clubbing, no cyanosis. Peripheral pulses are intact. - Labs CBC & Chem 7: 08/29/23 05:27 08/29/23 05:27 Labs: Abnormal Lab Results - Last 24 Hours (Table) 08/29/23 08/29/23 Range/Units 05:27 05:27 APTT 49.7 H (22.0-30.0) sec Sodium 136 L (137-145) mmol/L Chloride 108 H (98-107) mmol/L Carbon Dioxide 19 L (22-30) mmol/L BUN 8 L (9-20) mg/dL Creatinine 0.44 L (0.66-1.25) mg/dL Assessment and Plan Plan: Acute hypoxemic respiratory failure secondary to acute bilateral pulmonary emboli with right heart strain requiring Ekos procedure on 08/26/2023, currently hemodynamically stable. The patient is on anticoagulation with Eliquis. Acute left lower extremity DVT New-onset atrial fibrillation with rapid ventricular response History of hypertension Plan: Continue anticoagulation with Eliquis Increase mobility Currently on a Cardizem orally and is also 120 mg by mouth twice a day and metoprolol 25 mg twice a day Compression stockings the left lower extremity Being followed by cardiology and vascular surgery May need further vascular intervention regarding the left lower extremity with a thrombectomy the later stage Rate is controlled regarding dated fibrillation We'll continue to follow We'll transferred out of the intensive care unit
--- NOTE | 2023-08-29 18:56 | CDI ---
Documentation Clarification Form Date: 08/29/2023 06:27:29 PM From: Rita Bean RN CCDS Phone: [phone] Admit Date: 08/25/2023 09:25:00 PM Patient Name: Marbin Magaña Visit Number: [id number] Discharge Date: ATTENTION: The Clinical Documentation Specialists (CDI) and [facility] Coding Staff appreciate your assistance in clarifying documentation. Please respond to the clarification below the line at the bottom and electronically sign. The CDI & [facility] Coding staff will review the response and follow-up if needed. Please note: Queries are made part of the Legal Health Record. If you have any questions, please contact the author of this message via ITS. Dr. Blaine Blakely Acute bilateral submassive PE with right heart strain is documented 08/26, H&P and 08/27 08/29 Medicine progress notes. Additional clarification regarding the Heart strain is requested. History/Risk Factors: 67-year-old male presented with bilateral lower extremity swelling and left lower extremity pain. The patient developed worsening left lower extremity edema and pain. Mild right sided pleuritic chest discomfort with shortness of breath for two days. Medical History: HTN, 08/26, H&P. Clinical Indicators: Echo results, 08/26: Low normal LV systolic function. Septal bounce, Normal RV size, Right ventricular free wall appears to be ester. EF 45-50% Radiology results: CT Chest, 08/26: Very extensive bilateral pulmonary emboli Venous Doppler, 08/25: Left leg: positive for DVT entire left leg Consults: Vascular Surgery, 08/26: Extensive bilateral submassive pulmonary emboli resulting in right heart strain as demonstrated on CT scan as well as new cardiac dysrhythmia. Treatment: Heparin 6,459.12 unit IV x 1;08/25 08/29 Heparin per protocol IV; 08/26 Alteplase 150mls @ 25mls/hr, EKOS procedure, Monitor PT, PTT, INR, ICU admission Please clarify the acuity and etiology of Right Heart strain if known: [ x ] Acute Cor pulmonale due to pulmonary embolism [ ] Acute Cor pulmonale due to (please specify) [ ] Unable to determine [ ] Other, please specify Template Last Revised: November 2020) MTDD
[2023-08-30 08:03] LABS: HCT 44.4 % (39.0-53.0); HGB 14.4 gm/dL (13.0-17.5); MCH 30.5 pg (25.0-35.0); MCHC 32.4 g/dL (31.0-37.0); MCV 94.2 fL (80.0-100.0); Mean Platelet Volume 8.1; Platelet Count 215 k/uL (150-450); RBC 4.72 m/uL (4.30-5.90); RDW 13.6 % (11.5-15.5); WBC 6.3 k/uL (3.8-10.6)
[2023-08-30] MEDS: METOPROLOL TARTRATE 25 MG TAB PO SCH (08:11)
[2023-08-30] MEDS: APIXABAN 5 MG TAB PO SCH (08:11)
[2023-08-30] MEDS: DILTIAZEM CD 120 MG CAP.ER.24H PO SCH (08:11)
[2023-08-30 08:21] LABS: African American GFR (CKD) >90 (>60 ml/min/1.73 sqM); Anion Gap 11 mmol/L; Blood Urea Nitrogen 11 mg/dL (9-20); Calcium 8.9 mg/dL (8.4-10.2); Carbon Dioxide 19 mmol/L (22-30); Chloride 109 mmol/L (98-107); Glucose 95 mg/dL (74-99); Non-African American GFR(CKD) >90 (>60 ml/min/1.73 sqM); Potassium 4.1 mmol/L (3.5-5.1); Sodium 139 mmol/L (137-145)
[2023-08-30 10:05] VITALS: BP 137/94; PULSE 101; RESP 18; TEMP 98
--- NOTE | 2023-08-30 11:00 | P.DS ---
Providers Date of admission: 08/25/23 21:25 Expected date of discharge: 08/30/23 Attending physician: Mami Miner MD Consults: 08/25/23 21:23 Consult Physician Routine Consulting Provider: Garcia Madrid Consult Reason/Comments: Extensive L leg DVT Do you want consulting provider notified?: Yes 08/26/23 12:01 Consult Physician Routine Consulting Provider: Alec Gooden Consult Reason/Comments: New onset Afib Do you want consulting provider notified?: Yes 08/26/23 12:55 Consult Physician Stat Consulting Provider: Luis Angel Goodrich Consult Reason/Comments: Pulmonary embolism Do you want consulting provider notified?: Already Contacted Primary care physician: Ad Cardoza Hospital Course: Discharge Diagnosis: Acute bilateral submassive PE with right heart strain Acute Left lower extremity DVT Acute Left-sided pulmonary infarct Paroxysmal Afib with RVR, newly diagnosed, rate controlled Non-anion gap metabolic acidosis [facility] Hospital Course: Patient is a 67-year-old male with a PMH of hypertension who presents to the emergency room with complaints of bilateral lower extremity swelling and left lower extremity pain. Lower extremity Doppler in the emergency room revealed a DVT in the entire left leg with EKG showing A. fib with RVR at 160 bpm. Chest CTA revealed findings consistent with bilateral submassive PE with evidence of right heart strain. Laboratory evaluation revealed sodium 136, CO2 21, creatinine 0.49, glucose 106. Patient was also in atrial fibrillation with RVR. Vascular surgery was consulted. Status post EKOS. Was on Cardizem drip and heparin drip. Cardiology was consulted. Echocardiogram showed LVEF 45-50%, RVSP 39. Patient now transitioned off of IV medications, started on oral anticoagulation. Outpatient follow-up with vascular surgery and cardiology. He is on room air at the time of discharge. Patient seen and examined at bedside. Vital signs reviewed and stable. General: nontoxic, no distress, appears at stated age Derm: warm, dry Head: atraumatic, normocephalic, symmetric Eyes: EOMI, no lid lag, anicteric sclera Mouth: no lip lesion, mucus membranes moist Cardiovascular: S1S2 irregular, no murmur Lungs: CTA bilateral, no rhonchi, no rales , no accessory muscle use Abdominal: soft, nontender to palpation, no guarding, no appreciable organomegaly Ext: no gross muscle atrophy, bilateral 2+ pitting edema, no contractures Neuro: CN II-XI grossly intact, no focal neuro deficits Psych: Alert, oriented, appropriate affect A total of 36 minutes of time were spent preparing this complex discharge summary. Patient was discharged on 08/30/23 at 1021. Patient Condition at Discharge: Stable Plan - Discharge Summary Discharge Rx Participant: No New Discharge Prescriptions: New Diltiazem Cd [Cardizem CD] 120 mg PO BID #90 cap Apixaban [Eliquis Starter Pack (for VTE)] 5 - 10 mg PO DIRECTED 30 Days #1 each Metoprolol Tartrate [Lopressor] 25 mg PO BID #90 tab Discontinued Metoprolol Succinate (ER) [Toprol Xl] 25 mg PO DAILY amLODIPine [Norvasc] 10 mg PO DAILY Discharge Medication List Apixaban [Eliquis Starter Pack (for VTE)] 5 - 10 mg PO DIRECTED 30 Days #1 each 08/30/23 [Rx] Diltiazem Cd [Cardizem CD] 120 mg PO BID #90 cap 08/30/23 [Rx] Metoprolol Tartrate [Lopressor] 25 mg PO BID #90 tab 08/30/23 [Rx] Follow up Appointment(s)/Referral(s): Alec Gooden MD [STAFF PHYSICIAN] - 09/12/23 4:15 pm Garcia Madrid DO [Doctor of Osteopathic Medicine] - 1 Week (Call to make follow up appointment. ) Ad Cardoza MD [Primary Care Provider] - 1-2 days Patient Instructions/Handouts: A-fib (Atrial Fibrillation) (DC), Pulmonary Embolism (DC), Deep Vein Thrombosis (DC) Activity/Diet/Wound Care/Special Instructions: Please see cardiology and vascular surgery. Discharge Disposition: HOME SELF-CARE
--- NOTE | 2023-08-30 11:22 | P.PN ---
Subjective HISTORY OF PRESENT ILLNESS: This is a 67-year-old male was admitted to the hospital secondary to PE and left lower extremity DVT. He is status post EKOS. Echocardiogram reveals ejection fraction 45-50%. Telemetry reveals atrial fibrillation with controlled ventricular rate. Patient denies any chest pain or pressure. He denies any shortness of breath. Blood pressure stable. PHYSICAL EXAM: VITAL SIGNS: Reviewed. GENERAL: Well-developed in no acute distress. NECK: Supple. No JVD or thyromegaly LUNGS: Respirations even and unlabored. Lungs essentially clear to auscultation bilaterally. HEART: Regular rate and rhythm. S1 and S2 heard. EXTREMITIES: Normal range of motion. No clubbing or cyanosis. Peripheral pulses intact. No lower extremity edema ASSESSMENT: Acute bilateral PE, status post EKOS Extensive left lower extremity DVT Persistent atrial fibrillation with controlled ventricular rate Hypertension PLAN: Continue current cardiac medications Continue telemetry monitoring Patient is currently stable from a cardiac perspective Patient to follow-up post discharge in the office Nurse practitioner note has been reviewed by physician. Signing provider agrees with the documented findings, assessment, and plan of care. Objective - Vital Signs Vital signs: Vital Signs Temp 98 F 08/30/23 08:15 Pulse 101 H 08/30/23 08:15 Resp 18 08/30/23 08:15 BP 137/94 08/30/23 08:15 Pulse Ox 96 08/30/23 08:15 FiO2 Intake & Output 08/29/23 08/30/23 08/30/23 18:59 06:59 18:59 Intake Total 230.274 540 Output Total 1300 Balance -1069.726 540 Intake: Intake, IV Titration 230.274 Amount Diltiazem 125 mg In 58.5 Sodium Chloride 0.9% 100 ml @ Per Protocol IV .Q0M LIT Rx#:[id number] Heparin Sod,Pork in 0.45% 171.774 NaCl 25,000 unit In 0.45 % NaCl 1 250ml.bag @ 18 UNITS/KG/HR 14.533 mls/hr IV .[id number] LIT Rx#: [id number] Oral 540 Output: Urine 1300 Other: Voiding Method Urinal Urinal # Voids 1 1 - Labs CBC & Chem 7: 08/30/23 06:54 08/30/23 06:54 Labs: Abnormal Lab Results - Last 24 Hours (Table) 08/30/23 Range/Units 06:54 Chloride 109 H (98-107) mmol/L Carbon Dioxide 19 L (22-30) mmol/L Creatinine 0.49 L (0.66-1.25) mg/dL
--- NOTE | 2023-08-30 12:54 | P.PN ---
Subjective Progress Note Date: 08/30/23 This is a very pleasant 67-year-old male patient history of hypertension who presented to the emergency room on 08/25/2023 with left lower leg edema for 3 days prior. He was having some mild shortness of breath and felt this was due to recovering from pneumonia in the outpatient setting. He denied any chest pain. No recent travel. No prior history of blood clots. He was found to be in atrial fib relation with right rapid ventricular response He did have a slight trauma to the left leg and there is ecchymosis on the jackson area. Doppler of the lower extremity revealed positive for DVT in the entire left leg. CT angiogram revealed very extensive bilateral pulmonary emboli with evidence of right heart strain. Echocardiogram revealed normal low left ventricular systolic function. Normal RV size. Yesterday he was taken to the cardiovascular lab and had undergone placement of bilateral pulmonary artery catheter 2 with initiation of TPA thrombolysis (Ekos). Seen today in consultation in the intensive care unit. Ekos catheters were removed this morning. He is awake and alert in no acute distress. He is maintaining O2 saturations in the 90s on 2 L/m per nasal cannula. He remains in atrial fibrillation with varying ventricular response. He is afebrile. Hemodynamically stable. Count 8.5. Hemoglobin 15.4. Platelets 134. Sodium 134. Potassium 4.1. Bicarb 17. BUN 10. Creatinine 0.45. Glucose 103. He is currently on a Cardizem drip at 15 mg/h and a heparin drip per weight base protocol. He denies any chest pain, worsening shortness of breath. The patient is seen today in follow-up in the intensive care unit. He is currently sitting up in bed. Awake and alert in no acute distress. He still is in atrial fibrillation with rapid ventricular response. He is on a Cardizem drip at 15 mg per hour. Continued on a heparin drip. Maintain O2 saturations in the 90s on 2 L/m per nasal cannula. He is status post Ekos procedure. Catheters were removed yesterday. Count 10.9. Hemoglobin 15.1 platelets 149. Sodium 134. Potassium 3.8. Bicarb 15. BUN 11. Creatinine 0.47. Glucose 91. On today's evaluation of 08/29/2023, the patient is doing well. Patient is currently on room air oxygen. The patient's hemodynamics are stable. The patient remains on anticoagulation with Eliquis. The patient has swelling in the left lower extremity related to DVT. The patient completed EKOS therapy for pulmonary embolism. The patient has no hemodynamic instability at this point in time. As mentioned, the patient but the pulmonary embolism and a extensive DVT involving left lower extremity and the patient has a positive DVT involving the entire leg and the patient is going to undergo a thrombectomy at the later stage. Vascular surgeries on the case for now. The blood work shows a WBC count of 6.5, hemoglobin is 15, sodium is 136, potassium 3.8, bicarb is 19, BUN is at 8 with a creatinine of 0.44. No bleeding complications at this point in time. Note that the patient also developed a new onset atrial fibrillation. The rate is controlled for now. The patient is on anticoagulants. The patient is also on oral Cardizem. He is also on metoprolol 25 mg by mouth twice a day. On today's evaluation of 08/30/2023, the patient is doing well. The patient is on anticoagulation. No bleeding. He is on room air oxygen. Has compressive stocking. Right lower extremity.Blood work shows a WD signal 6.3, he was 14.4, platelets is 2:15, BUN is 11 with a creatinine of 0.4 and a sodium levels of 139. Objective - Vital Signs Vital signs: Vital Signs Temp 98 F 08/30/23 08:15 Pulse 101 H 08/30/23 08:15 Resp 18 08/30/23 08:15 BP 137/94 08/30/23 08:15 Pulse Ox 96 08/30/23 08:15 FiO2 Intake & Output 08/29/23 08/30/23 08/30/23 18:59 06:59 18:59 Intake Total 230.274 540 Output Total 1300 Balance -1069.726 540 Intake: Intake, IV Titration 230.274 Amount Diltiazem 125 mg In 58.5 Sodium Chloride 0.9% 100 ml @ Per Protocol IV .Q0M LIT Rx#:[id number] Heparin Sod,Pork in 0.45% 171.774 NaCl 25,000 unit In 0.45 % NaCl 1 250ml.bag @ 18 UNITS/KG/HR 14.533 mls/hr IV .[id number] LIT Rx#: [id number] Oral 540 Output: Urine 1300 Other: Voiding Method Urinal Urinal # Voids 1 1 - Exam GENERAL EXAM: Alert, pleasant 67-year-old male, on RA, comfortable in no apparent distress. HEAD: Normocephalic. EYES: Normal reaction of pupils, equal size. NOSE: Clear with pink turbinates. THROAT: No erythema or exudates. NECK: No masses, no JVD. CHEST: No chest wall deformity. LUNGS: Equal air entry with crackles in the bilateral bases, no wheeze, rhonchi or dullness. CVS: S1 and S2 normal with no audible murmur, irregular rhythm. ABDOMEN: No hepatosplenomegaly, normal bowel sounds, no guarding or rigidity. SPINE: No scoliosis or deformity SKIN: No rashes CENTRAL NERVOUS SYSTEM: No focal deficits, tone is normal in all 4 extremities. EXTREMITIES: Femoral puncture sites clean and dry. There is no peripheral edema. No clubbing, no cyanosis. Peripheral pulses are intact. - Labs CBC & Chem 7: 08/30/23 06:54 08/30/23 06:54 Labs: Abnormal Lab Results - Last 24 Hours (Table) 08/30/23 Range/Units 06:54 Chloride 109 H (98-107) mmol/L Carbon Dioxide 19 L (22-30) mmol/L Creatinine 0.49 L (0.66-1.25) mg/dL Assessment and Plan Plan: Acute hypoxemic respiratory failure secondary to acute bilateral pulmonary emboli with right heart strain requiring Ekos procedure on 08/26/2023, currently hemodynamically stable. The patient is on anticoagulation with Eliquis. Acute left lower extremity DVT New-onset atrial fibrillation with rapid ventricular response History of hypertension Plan: Patient is to be discharged home today. Clinically stable. Hemodynamically stable. Oxygenation is stable Continue anticoagulation with Eliquis Increase mobility Currently on a Cardizem orally and is also 120 mg by mouth twice a day and metoprolol 25 mg twice a day Compression stockings the left lower extremity Being followed by cardiology and vascular surgery May need further vascular intervention regarding the left lower extremity with a thrombectomy the later stage We'll get discharged home today to be followed up on outpatient basis.
[2023-09-05] MEDS ORDERED: APIXABAN 5 MG TAB PO SCH (09:00)
== END 2023-08-30 12:42 | disposition home or self-care (01) | DRG 173 ==
LOC: EC 16:44 → 5NMEDONC 21:25 → 3SCARD 08-26 01:40 → 2SICU 08-26 08:10 → 3SCARD 08-29 20:45
PROVIDERS: ADMIT Internal Medicine; ATTEND Internal Medicine
PROC: 02FQ3Z0 Fragmentation of Right Pulmonary Artery, Percutaneous Approach, Ultrasonic (ICD-10-PCS; principal; 2023-08-26 08:43)
PROC: 02FR3Z0 Fragmentation of Left Pulmonary Artery, Percutaneous Approach, Ultrasonic (ICD-10-PCS; principal; 2023-08-26 08:43)
PROC: 3E06317 Introduction of Other Thrombolytic into Central Artery, Percutaneous Approach (ICD-10-PCS; principal; 2023-08-26 08:43)
DX: I26.09 Other pulmonary embolism with acute cor pulmonale (principal); J96.01 Acute respiratory failure with hypoxia; J18.9 Pneumonia, unspecified organism; E87.20 Acidosis, unspecified; I48.19 Other persistent atrial fibrillation; I82.422 Acute embolism and thrombosis of left iliac vein; I10 Essential (primary) hypertension; Z79.899 Other long term (current) drug therapy; Z96.651 Presence of right artificial knee joint; I87.2 Venous insufficiency (chronic) (peripheral); I83.93 Asymptomatic varicose veins of bilateral lower extremities; Z28.311 Partially vaccinated for COVID-19; Z11.52 Encounter for screening for COVID-19
CPT/HCPCS: 37211; 71275; 80048; 80053; 83735; 84443; 84484; 85025; 85027; 85384; 85610; 85730; 87636; 93005; 93306; 96365; 96366; 96375; 99285

== ENCOUNTER 2023-10-06 10:24 | Inpatient (IN) | payer MEDICARE ==
[2023-10-06] MEDS ORDERED: DILTIAZEM DRIP BOLUS FROM BAG 1 MG SOLN IV ONE (10:41)
--- NOTE | 2023-10-06 10:43 | ED ---
General Adult HPI - General Chief complaint: Arrhythmia/Palpitations Stated complaint: High heart rate Time Seen by Provider: 10/06/23 10:26 Source: patient, family, EMS, RN notes reviewed Mode of arrival: EMS Limitations: no limitations - History of Present Illness Initial comments: Patient is a pleasant 67-year-old male presenting to the emergency department with concerns for high heart rate. Patient was going to have procedure done for blood clot removal from his veins. Patient was found to have high heart rate. Patient denies any history of similar symptoms previously however states patient has had atrial fibrillation. Patient is on Eliquis secondary to blood clots. Patient states he has had some minimal exertional dyspnea in the past couple of days. No chest pain. - Related Data Home Medications Medication Instructions Recorded Confirmed Apixaban [Eliquis] 5 mg PO BID 10/06/23 10/06/23 Previous Rx's Medication Instructions Recorded Diltiazem Cd [Cardizem CD] 120 mg PO BID #90 cap 08/30/23 Metoprolol Tartrate [Lopressor] 25 mg PO BID #90 tab 08/30/23 Allergies Allergy/AdvReac Type Severity Reaction Status Date / Time bee pollen Allergy Rash/Hives Verified 10/06/23 11:49 Review of Systems ROS Statement: Those systems with pertinent positive or pertinent negative responses have been documented in the HPI. ROS Other: All systems not noted in ROS Statement are negative. Constitutional: Denies: fever Eyes: Denies: eye pain ENT: Denies: ear pain Respiratory: Reports: as per HPI Cardiovascular: Denies: chest pain, palpitations Endocrine: Denies: fatigue Gastrointestinal: Denies: abdominal pain Past Medical History Past Medical History: Atrial Fibrillation, Deep Vein Thrombosis (DVT), Hypertension, Liver Disease, Osteoarthritis (OA), Pneumonia, Pulmonary Embolus (PE) Additional Past Medical History / Comment(s): shingles April 2023, recent adm. for DVT & PE, new dx. A-fib, current sore throat & nasal congestion, covid test this am neg., had been prescribed med from PCP for symptoms but is now out of, is calling PCP today,. Pneumonia July 2023, recently finished meds. for Hepatitis C-needs blood test since finished med. per pt History of Any Multi-Drug Resistant Organisms: None Reported Past Surgical History: Hernia Repair, Joint Replacement Additional Past Surgical History / Comment(s): Right knee replacement, had procedure to dissolve PE & DVT while here recently Past Anesthesia/Blood Transfusion Reactions: No Reported Reaction Past Psychological History: No Psychological Hx Reported Smoking Status: Never smoker General Exam Limitations: no limitations General appearance: alert, in no apparent distress Head exam: Present: normocephalic Eye exam: Present: normal appearance Respiratory exam: Present: normal lung sounds bilaterally Cardiovascular Exam: Present: tachycardia, irregular rhythm GI/Abdominal exam: Present: soft. Absent: tenderness Extremities exam: Present: normal inspection Neurological exam: Present: alert Psychiatric exam: Present: normal affect, normal mood Skin exam: Present: normal color Course Vital Signs 10/06/23 10:26 Temperature 98.3 F Pulse Rate 148 H Respiratory 18 Rate Blood Pressure 107/94 O2 Sat by Pulse 95 Oximetry EKG Findings - EKG Results: EKG: interpreted by BERTHA, normal axis, normal QRS, normal ST/T EKG shows: tachycardia, atrial fibrillation Medical Decision Making - Medical Decision Making Was pt. sent in by a medical professional or institution (, PA, ZONING ADMINISTRATOR, urgent care, hospital, or residential...) When possible be specific @ -Patient was sent up by vascular lab Did you speak to anyone other than the patient for history (EMS, parent, family, police, friend...)? What history was obtained from this source @ - is present to help provide history including history of previous A-fib Did you review nursing and triage notes (agree or disagree)? Why? @ -I reviewed and agree with nursing and triage notes Were old charts reviewed (outside hosp., previous admission, EMS record, old EKG, old radiological studies, urgent care reports/EKG's, residential records)? Report findings @ -No old charts were reviewed Differential Diagnosis (chest pain, altered mental status, abdominal pain women, abdominal pain men, vaginal bleeding, weakness, fever, dyspnea, syncope, headache, dizziness, GI bleed, back pain, seizure, CVA, palpatations, mental health, musculoskeletal)? @ -Differential Palpitations Ventricular arrhythmias, atrial arrhythmias, myocardial infarction, anemia, thyrotoxicosis, electrolyte imbalance, hypokalemia, pulmonary embolism, pulmonary disease, drugs, alcohol, anxiety, stress.... This is not meant to be an all-inclusive list. EKG interpreted by me (3pts min.). @ -As above X-rays interpreted by me (1pt min.). @ -Chest x-ray shows no acute process CT interpreted by me (1pt min.). @ -None done U/S interpreted by me (1pt. min.). @ -None done What testing was considered but not performed or refused? (CT, X-rays, U/S, labs)? Why? @ -None What meds were considered but not given or refused? Why? @ -None Did you discuss the management of the patient with other professionals (professionals i.e. DrShade, PA, ZONING ADMINISTRATOR, lab, RT, psych nurse, family welfare social work professor, assembly worker, teacher, learning officer, case briefer)? Give summary @ -E physician paged for admission who will admit covering for hospital call. Was smoking cessation discussed for >3mins.? @ -No Was critical care preformed (if so, how long)? @ -32 minutes critical care time Were there social determinants of health that impacted care today? How? (Homelessness, low income, unemployed, alcoholism, drug addiction, transportation, low edu. Level, literacy, decrease access to med. care, fpc, rehab)? @ -No Was there de-escalation of care discussed even if they declined (Discuss DNR or withdrawal of care, Hospice)? DNR status @ -No What co-morbidities impacted this encounter? (DM, HTN, Smoking, COPD, CAD, Cancer, CVA, ARF, Chemo, Hep., AIDS, mental health diagnosis, sleep apnea, mor bid obesity)? @ -None Was patient admitted / discharged? Hospital course, mention meds given and [place], prescriptions, significant lab abnormalities, going to OR and other pertinent info. @ -Patient reevaluated without significant change. Patient will be admitted with Cardizem drip. Cardiology will be placed on consult. Undiagnosed new problem with uncertain prognosis? @ -No Drug Therapy requiring intensive monitoring for toxicity (Heparin, Nitro, Insulin, Cardizem)? @ -Patient is on Cardizem drip that will required continued monitoring Were any procedures done? @ -No Diagnosis/symptom? @ -A-fib with RVR Acute, or Chronic, or Acute on Chronic? @ -Acute Uncomplicated (without systemic symptoms) or Complicated (systemic symptoms)? @ -Default Side effects of treatment? @ -No Exacerbation, Progression, or Severe Exacerbation? @ -No Poses a threat to life or bodily function? How? (Chest pain, USA, DC, pneumonia, PE, COPD, DKA, ARF, appy, cholecystitis, CVA, Diverticulitis, Homicidal, Suicidal, threat to staff... and all critical care pts) @ -No - Lab Data Result diagrams: 10/06/23 10:50 10/06/23 10:50 Lab Results 10/06/23 10/06/23 10/06/23 Range/Units 10:50 10:50 10:50 WBC 10.9 H (3.8-10.6) k/uL RBC 4.74 (4.30-5.90) m/uL Hgb 14.3 (13.0-17.5) gm/dL Hct 44.3 (39.0-53.0) % MCV 93.5 (80.0-100.0) fL MCH 30.1 (25.0-35.0) pg MCHC 32.2 (31.0-37.0) g/dL RDW 13.7 (11.5-15.5) % Plt Count 220 (150-450) k/uL MPV 8.3 Neutrophils % 76 % Lymphocytes % 15 % Monocytes % 6 % Eosinophils % 1 % Basophils % 1 % Neutrophils # 8.2 H (1.3-7.7) k/uL Lymphocytes # 1.6 (1.0-4.8) k/uL Monocytes # 0.7 (0-1.0) k/uL Eosinophils # 0.1 (0-0.7) k/uL Basophils # 0.1 (0-0.2) k/uL PT 17.3 H (10.0-12.5) sec INR 1.7 H (<1.2) APTT 29.8 (22.0-30.0) sec Sodium 136 L (137-145) mmol/L Potassium 4.6 (3.5-5.1) mmol/L Chloride 108 H (98-107) mmol/L Carbon Dioxide 19 L (22-30) mmol/L Anion Gap 9 mmol/L BUN 16 (9-20) mg/dL Creatinine 0.57 L (0.66-1.25) mg/dL Est GFR (CKD-EPI)AfAm >90 (>60 ml/min/1.73 sqM) Est GFR (CKD-EPI)NonAf >90 (>60 ml/min/1.73 sqM) Glucose 88 (74-99) mg/dL Calcium 9.0 (8.4-10.2) mg/dL Magnesium 1.7 (1.6-2.3) mg/dL Total Bilirubin 1.7 H (0.2-1.3) mg/dL AST 39 (17-59) U/L ALT 31 (4-49) U/L Alkaline Phosphatase 87 (38-126) U/L Troponin I (0.000-0.034) ng/mL Total Protein 6.8 (6.3-8.2) g/dL Albumin 3.5 (3.5-5.0) g/dL TSH 1.780 (0.465-4.680) mIU/L 10/06/23 Range/Units 10:50 WBC (3.8-10.6) k/uL RBC (4.30-5.90) m/uL Hgb (13.0-17.5) gm/dL Hct (39.0-53.0) % MCV (80.0-100.0) fL MCH (25.0-35.0) pg MCHC (31.0-37.0) g/dL RDW (11.5-15.5) % Plt Count (150-450) k/uL MPV Neutrophils % % Lymphocytes % % Monocytes % % Eosinophils % % Basophils % % Neutrophils # (1.3-7.7) k/uL Lymphocytes # (1.0-4.8) k/uL Monocytes # (0-1.0) k/uL Eosinophils # (0-0.7) k/uL Basophils # (0-0.2) k/uL PT (10.0-12.5) sec INR (<1.2) APTT (22.0-30.0) sec Sodium (137-145) mmol/L Potassium (3.5-5.1) mmol/L Chloride (98-107) mmol/L Carbon Dioxide (22-30) mmol/L Anion Gap mmol/L BUN (9-20) mg/dL Creatinine (0.66-1.25) mg/dL Est GFR (CKD-EPI)AfAm (>60 ml/min/1.73 sqM) Est GFR (CKD-EPI)NonAf (>60 ml/min/1.73 sqM) Glucose (74-99) mg/dL Calcium (8.4-10.2) mg/dL Magnesium (1.6-2.3) mg/dL Total Bilirubin (0.2-1.3) mg/dL AST (17-59) U/L ALT (4-49) U/L Alkaline Phosphatase (38-126) U/L Troponin I <0.012 (0.000-0.034) ng/mL Total Protein (6.3-8.2) g/dL Albumin (3.5-5.0) g/dL TSH (0.465-4.680) mIU/L Critical Care Time Critical Care Time: Yes Total Critical Care Time: 32 Disposition Clinical Impression: Atrial fibrillation Disposition: ADMITTED IP TO THIS HOSP Is patient prescribed a controlled substance at d/c from ED?: No Referrals: Ad Cardoza MD [Primary Care Provider] - 1-2 days Time of Disposition: 12:36
[2023-10-06] MEDS ORDERED: DILTIAZEM 125 MG in SODIUM CHLORIDE 0.9% 100 ML IV SCH (10:45)
[2023-10-06 11:02] LABS: Basophils # (A) 0.1 k/uL (0-0.2); Basophils % (A) 1 %; Eosinophils # (A) 0.1 k/uL (0-0.7); Eosinophils % (A) 1 %; HCT 44.3 % (39.0-53.0); HGB 14.3 gm/dL (13.0-17.5); Lymphocytes # (A) 1.6 k/uL (1.0-4.8); Lymphocytes % (A) 15 %; MCH 30.1 pg (25.0-35.0); MCHC 32.2 g/dL (31.0-37.0); MCV 93.5 fL (80.0-100.0); Mean Platelet Volume 8.3; Monocytes # (A) 0.7 k/uL (0-1.0); Monocytes % (A) 6 %; Neutrophils # (A) 8.2 k/uL (1.3-7.7); Neutrophils % (A) 76 %; Platelet Count 220 k/uL (150-450); RBC 4.74 m/uL (4.30-5.90); RDW 13.7 % (11.5-15.5); WBC 10.9 k/uL (3.8-10.6)
[2023-10-06 11:19] LABS: ALT 31 U/L (4-49); AST 39 U/L (17-59); African American GFR (CKD) >90 (>60 ml/min/1.73 sqM); Albumin 3.5 g/dL (3.5-5.0); Alkaline Phosphatase 87 U/L (38-126); Anion Gap 9 mmol/L; Blood Urea Nitrogen 16 mg/dL (9-20); Carbon Dioxide 19 mmol/L (22-30); Chloride 108 mmol/L (98-107); Glucose 88 mg/dL (74-99); Magnesium 1.7 mg/dL (1.6-2.3); Non-African American GFR(CKD) >90 (>60 ml/min/1.73 sqM); Potassium 4.6 mmol/L (3.5-5.1); Sodium 136 mmol/L (137-145); Total Bilirubin 1.7 mg/dL (0.2-1.3); Total Protein 6.8 g/dL (6.3-8.2)
--- NOTE | 2023-10-06 11:22 | XR ---
EXAMINATION TYPE: XR chest 2V DATE OF EXAM: 10/06/2023 COMPARISON: NONE HISTORY: Shortness of breath TECHNIQUE: Frontal and lateral views of the chest are obtained. FINDINGS: Scattered senescent parenchymal changes noted. Hyperinflation compatible with COPD. No evidence for infiltrate. No evidence for atelectasis. Heart size is stable. Mediastinal structures are stable and grossly unremarkable. No evidence for hilar prominence. Degenerative changes dorsal spine. IMPRESSION: 1. No evidence for acute pulmonary disease.
[2023-10-06 11:23] LABS: INR 1.7 (<1.2); Partial Thromboplastin Time 29.8 sec (22.0-30.0); Prothrombin Time 17.3 sec (10.0-12.5)
[2023-10-06] MEDS ORDERED: NALOXONE 0.4 MG/ML 1 ML VIAL IV PRN (12:36)
[2023-10-06 13:48] LABS: T4, Free (Free Thyroxine) 1.7 ng/dL (0.78-2.19)
[2023-10-06] MEDS: FAMOTIDINE 20 MG TAB PO SCH (15:32)
[2023-10-06] MEDS: METOPROLOL TARTRATE 25 MG TAB PO SCH ×2 (15:32→21:03)
[2023-10-06] MEDS: DILTIAZEM CD 120 MG CAP.ER.24H PO SCH (21:03)
[2023-10-06] MEDS: APIXABAN 5 MG TAB PO SCH (21:03)
[2023-10-06] MEDS ORDERED: SODIUM CHLORIDE 0.9% 500 ML 250 ML IV ONE (22:23)
[2023-10-06] MEDS ORDERED: MAGNESIUM SULFATE-D5W PMX 1 GM in DEXTROSE/WATER 1 100ML.BAG IVPB ONE (22:25)
--- NOTE | 2023-10-06 22:34 | P.HPIM ---
History of Present Illness H&P Date: 10/06/23 Chief Complaint: Rapid heart rate Patient is a 67-year-old male with a known history of hypertension, recent admission on 08/25/2023 with new onset atrial fibrillation with rapid ventricular rate, extensive left lower extremity DVT and bilateral pulmonary emboli with possible infarction, extensive filling defects and right heart strain was sent to ER due to complaints of atrial fibrillation with rapid ventricular rate. Patient underwent EKOS and was also treated with low-dose tPA and heparin drip. Patient was discharged home with Evert on 08/30/2023.. He was seen by vascular surgery on 09/28/2023 in the outpatient office. Patient has been using support hose 24 hours a day. Patient was scheduled for percutaneous thrombectomy from the iliac and femoral vein of left lower extremity. While he was being prepped for the surgery patient was noted to have elevated he art rate/A-fib with RVR and was sent to ER for further management. Patient otherwise denies any chest pain. No complaints of dizziness or lightheadedness. No palpitations. No increased leg swelling. Patient is afebrile. Patient states that he has been having sore throat and nasal congestion for the past week and a half and was taking medications prescribed by his primary care physician. Chest x-ray showed no acute process EKG showed atrial fibrillation with rapid ventricular response with heart rate 148 Laboratory data showed WBC 10.9 hemoglobin 14.3 and platelets 220 Sodium 136 potassium 4.6 chloride 108 bicarb is 19 BUN 16 and creatinine 0.57 and total bili 1.7 and magnesium 1.7 Troponin x 2 negative liver enzymes are not elevated. TSH 1.78. Review of Systems Constitutional: Patient denies any fever or chills . no Generalized weakness. Abdomen: Patient denied any nausea or vomiting or abd. pain Cardiovascular: Patient denies any chest pain. Short of breath no palpitations. Leg swelling. Respiratory: patient denied any cough . no sputum production. Minimal shortness of breath Neurologic: Patient denied any numbness or tingling or headache. Musculoskeletal: Patient denies any complaints of joint swelling or deformity. Skin: Negative Psychiatric: Negative Endocrine: No heat or cold intolerance. No recent weight gain. Genitourinary: No dysuria or hematuria. All other 14 point ROS negative except the above Past Medical History Past Medical History: Atrial Fibrillation, Deep Vein Thrombosis (DVT), Hype rtension, Liver Disease, Osteoarthritis (OA), Pneumonia, Pulmonary Embolus (PE) Additional Past Medical History / Comment(s): shingles April 2023, recent adm. for DVT & PE, new dx. A-fib, current sore throat & nasal congestion, covid test this am neg., had been prescribed med from PCP for symptoms but is now out of, is calling PCP today,. Pneumonia July 2023, recently finished meds. for Hepatitis C-needs blood test since finished med. per pt History of Any Multi-Drug Resistant Organisms: None Reported Past Surgical History: Hernia Repair, Joint Replacement Additional Past Surgical History / Comment(s): Right knee replacement, had procedure to dissolve PE & DVT while here recently Past Anesthesia/Blood Transfusion Reactions: No Reported Reaction Past Psychological History: No Psychological Hx Reported Smoking Status: Never smoker Medications and Allergies Home Medications Medication Instructions Recorded Confirmed Type Diltiazem Cd [Cardizem CD] 120 mg PO BID #90 cap 08/30/23 10/06/23 Rx Metoprolol Tartrate [Lopressor] 25 mg PO BID #90 tab 08/30/23 10/06/23 Rx Apixaban [Eliquis] 5 mg PO BID 10/06/23 10/06/23 History Allergies Allergy/AdvReac Type Severity Reaction Status Date / Time bee pollen Allergy Rash/Hives Verified 10/06/23 11:49 Physical Exam Vitals: Vital Signs Temp Pulse Pulse Resp BP Pulse Ox 10/06/23 13:00 140 H 18 133/105 90 L 10/06/23 12:40 170 H 10/06/23 10:26 98.3 F 148 H 18 107/94 95 Intake and Output 10/05/23 10/06/23 10/06/23 22:59 06:59 14:59 Other: Weight 81.193 kg PHYSICAL EXAMINATION: Patient is lying in the bed comfortably, no acute distress, awake alert and oriented.. HEENT: Normocephalic. Neck is supple. Pupils reactive. Nostrils clear. Oral cavity is moist. Neck reveals no JVD, carotid bruits, or thyromegaly. CHEST EXAMINATION: Trachea is central. Symmetrical expansion. Lung sharma clear to auscultation and percussion. CARDIAC: Normal S1, S2 with no gallops. No murmurs. Irregularly irregular rhythm. ABDOMEN: Soft. Bowel sounds present. Nontender. No organomegaly. No abdominal bruits. Extremities: Bilateral lower extremity 2+ edema. No clubbing or cyanosis Neurologically awake, alert, oriented x3 with well-coordinated movements. No focal deficits noted Skin: No rash or skin lesions. Psychiatric: Coperative. Nonsuicidal, Musculoskeletal: No joint swelling or deformity. Normal range of motion. Results CBC & Chem 7: 10/06/23 10:50 10/06/23 10:50 Labs: Abnormal Lab Results - Last 24 Hours (Table) 10/06/23 10/06/23 10/06/23 Range/Units 10:50 10:50 10:50 WBC 10.9 H (3.8-10.6) k/uL Neutrophils # 8.2 H (1.3-7.7) k/uL PT 17.3 H (10.0-12.5) sec INR 1.7 H (<1.2) Sodium 136 L (137-145) mmol/L Chloride 108 H (98-107) mmol/L Carbon Dioxide 19 L (22-30) mmol/L Creatinine 0.57 L (0.66-1.25) mg/dL Total Bilirubin 1.7 H (0.2-1.3) mg/dL Thrombosis Risk Factor Assmnt - DVT/VTE Prophylaxis DVT/VTE Prophylaxis: Pharmacologic Prophylaxis ordered Assessment and Plan Assessment: Atrial fibrillation with rapid ventricular rate Recent history of extensive left lower extremity DVT and extensive filling defects bilaterally with PE and right ventricular strain on 08/25/23. Patient was status post EKOS, low-dose tPA, heparin iv and on currently Eliquis at home. Scheduled for left lower extremity thrombectomy on 10/06/2023 Left lower extremity swelling Hypovolemic hyponatremia Hypomagnesemia replace. Hypertension DVT and GI prophylaxis patient is already on Eliquis Plan: Patient will be continued on telemonitoring. Started on Cardizem drip and titrate dose to control heart rate below 100. Patient had recent echocardiogram showed normal RV size and right ventricular systolic pressure 39 mm VISI and left ventricular systolic function is 45 to 50% during A-fib with RVR.. Patient will be started back on metoprolol and Cardizem p.o. and Eliquis. Cardiology was consulted for evaluation. Time with Patient: Greater than 30
[2023-10-07] MEDS: DILTIAZEM 125 MG in SODIUM CHLORIDE 0.9% 100 ML IV SCH ×2 (01:55→15:12)
[2023-10-07] MEDS: FAMOTIDINE 20 MG TAB PO SCH (08:44)
[2023-10-07] MEDS: APIXABAN 5 MG TAB PO SCH ×2 (08:45→21:35)
[2023-10-07] MEDS: METOPROLOL TARTRATE 25 MG TAB PO SCH ×3 (08:45→21:35)
[2023-10-07] MEDS: DILTIAZEM CD 120 MG CAP.ER.24H PO SCH ×2 (08:45→21:35)
[2023-10-07 09:36] LABS: Basophils # (A) 0.1 k/uL (0-0.2); Basophils % (A) 1 %; Eosinophils # (A) 0.1 k/uL (0-0.7); Eosinophils % (A) 1 %; HCT 45.6 % (39.0-53.0); HGB 14.7 gm/dL (13.0-17.5); Lymphocytes # (A) 1.7 k/uL (1.0-4.8); Lymphocytes % (A) 18 %; MCH 30.6 pg (25.0-35.0); MCHC 32.4 g/dL (31.0-37.0); MCV 94.6 fL (80.0-100.0); Mean Platelet Volume 8.7; Monocytes # (A) 0.9 k/uL (0-1.0); Monocytes % (A) 9 %; Neutrophils # (A) 6.8 k/uL (1.3-7.7); Neutrophils % (A) 70 %; Platelet Count 229 k/uL (150-450); RBC 4.81 m/uL (4.30-5.90); RDW 13.8 % (11.5-15.5); WBC 9.7 k/uL (3.8-10.6)
[2023-10-07 09:56] LABS: ALT 30 U/L (4-49); AST 41 U/L (17-59); African American GFR (CKD) >90 (>60 ml/min/1.73 sqM); Albumin 3.3 g/dL (3.5-5.0); Alkaline Phosphatase 77 U/L (38-126); Anion Gap 9 mmol/L; Blood Urea Nitrogen 13 mg/dL (9-20); Calcium 8.7 mg/dL (8.4-10.2); Carbon Dioxide 19 mmol/L (22-30); Chloride 108 mmol/L (98-107); Glucose 132 mg/dL (74-99); Non-African American GFR(CKD) >90 (>60 ml/min/1.73 sqM); Sodium 136 mmol/L (137-145); Total Bilirubin 1.7 mg/dL (0.2-1.3); Total Protein 6.7 g/dL (6.3-8.2)
[2023-10-07 10:01] LABS: NT-Pro-B-Type Natriuretic Pept 1060 pg/mL
[2023-10-07 10:06] LABS: Potassium 4.3 mmol/L (3.5-5.1)
[2023-10-07] MEDS ORDERED: METOPROLOL TARTRATE 12.5 MG TAB PO STA (12:31)
--- NOTE | 2023-10-07 16:41 | P.CRDCN ---
History of Present Illness Consult date: 10/07/23 Consult reason: atrial fibrillation Chief complaint: a-fib with RVR History of present illness: History of present illness: Patient is a pleasant 67-year-old male with significant past medical history of hypertension, atrial fibrillation, extensive lower extremity DVT and bilateral pulmonary embolism presented to the emergency department due to A-fib with RVR. He does follow with Dr. Cancino in the office. Recent admission 08/25/2023 with LLE DVT, billateral pulmonary emboli with right heart strain. He underwent EKOS procedure. He was scheduled to have percutaneous thrombectomy of the left lower extremity with Dr. Garcia however was found to be in A-fib with RVR and surgery was postponed and he was sent to the ER. Does report that he has had a cough and congestion as well as a sore throat for the past month. He has taken 10-day course of antibiotics and 5 days of steroids. He denies any chest pain or pressure. He does have occasional shortness of breath. He denies any palpitations or heart racing. Denies any dizziness or lightheadedness, no syncope. He does report that he ran out of his Cardizem at home approximately 1 week ago and this was not refilled. He also did miss 2 days of his Eliquis. While shows atrial fibrillation with RVR, 148 bpm. Labs reviewed: WBC 10.9, sodium 136, creatinine 0.57, troponin negative x 2, TSH is normal. REVIEW OF SYSTEMS: No fever or chills. No cough or expectoration. No diaphoresis. Patient denies headache, dizziness, blurred vision, double vision. Patient denies any stomach discomfort. No nausea, vomiting. No hematochezia. No hematemesis. Denies any black stools or blood in his stools. Denies dysuria or hematuria. No muscle weakness or numbness. No chest pain or pressure. Occasional shortness of breath. PHYSICAL EXAMINATION: This is a 56-year-old male in no apparent distress at the time of my examination. HEENT: Head is atraumatic, normocephalic. Pupils are equal, round. Sclerae anicteric. Conjunctivae are clear. Mucous membranes of the mouth are moist. Neck is supple. There is no jugular venous distention. No carotid bruit is heard. CHEST EXAMINATION: Lungs are clear to auscultation. No chest wall tenderness is noted on palpation or with deep breathing. HEART EXAMINATION: Heart irregular rate and rhythm, tachycardic. S1, S2 heard. No murmurs, gallops or rub. ABDOMEN: Soft, nontender. Bowel sounds are heard. EXTREMITIES: 2+ peripheral pulses with no evidence of peripheral edema and no calf tenderness noted. NEUROLOGIC EXAMINATION: Patient is awake, alert and oriented x3. IMPRESSION AND PLAN: Atrial fibrillation with RVR Lower extremity DVT Pulmonary emboli with prior right heart strain Hypertension PLAN: Recommend continuing with p.o. Cardizem and wean off Cardizem drip. Continue with anticoagulation. Increase metoprolol to 37.5 mg twice daily for better rate control. If his heart rate remains controlled okay to discharge home from a cardiology standpoint. Follow-up with Dr. Cancino in 1 week. I am dictating on behalf of Dr. Billy Neri's history/physical and assessment/plan. Past Medical History Past Medical History: Atrial Fibrillation, Deep Vein Thrombosis (DVT), Hypertension, Liver Disease, Osteoarthritis (OA), Pneumonia, Pulmonary Embolus (PE) Additional Past Medical History / Comment(s): shingles April 2023, recent adm. for DVT & PE, new dx. A-fib, current sore throat & nasal congestion, covid test this am neg., had been prescribed med from PCP for symptoms but is now out of, is calling PCP today,. Pneumonia July 2023, recently finished meds. for Hepatitis C-needs blood test since finished med. per pt History of Any Multi-Drug Resistant Organisms: None Reported Past Surgical History: Hernia Repair, Joint Replacement Additional Past Surgical History / Comment(s): Right knee replacement, had procedure to dissolve PE & DVT while here recently Past Anesthesia/Blood Transfusion Reactions: No Reported Reaction Past Psychological History: No Psychological Hx Reported Smoking Status: Never smoker Medications and Allergies Home Medications Medication Instructions Recorded Confirmed Type Diltiazem Cd [Cardizem CD] 120 mg PO BID #90 cap 08/30/23 10/06/23 Rx Metoprolol Tartrate [Lopressor] 25 mg PO BID #90 tab 08/30/23 10/06/23 Rx Apixaban [Eliquis] 5 mg PO BID 10/06/23 10/06/23 History Allergies Allergy/AdvReac Type Severity Reaction Status Date / Time bee pollen Allergy Rash/Hives Verified 10/06/23 11:49 Physical Exam Vitals: Vital Signs Temp Pulse Pulse Resp BP Pulse Ox 10/07/23 08:47 140 H 20 129/90 94 L 10/07/23 07:32 110 H 20 116/97 98 10/07/23 06:00 144 H 16 110/91 95 10/07/23 05:00 141 H 17 109/95 95 10/07/23 04:00 124 H 17 95 10/07/23 03:00 117 H 18 117/98 94 L 10/07/23 02:00 135 H 20 122/94 94 L 10/07/23 01:57 113 H 17 122/95 96 10/07/23 00:30 118 H 19 119/95 94 L 10/06/23 23:57 124 H 20 115/90 95 10/06/23 21:00 141 H 18 140/92 10/06/23 20:10 144 H 18 114/92 92 L 10/06/23 13:00 140 H 18 133/105 90 L 10/06/23 12:40 170 H 10/06/23 10:26 98.3 F 148 H 18 107/94 95 Intake and Output 10/06/23 10/07/23 10/07/23 22:59 06:59 14:59 Intake Total 57.417 Balance 57.417 Intake: Intake, IV Titration 57.417 Amount Diltiazem 125 mg In 57.417 Sodium Chloride 0.9% 100 ml @ 5 MG/HR 5 mls/hr IV .Q24H [facility] Rx#:[id number] Results 10/07/23 08:31 10/07/23 08:31 Cardiac Enzymes 10/06/23 10/06/23 10/06/23 Range/Units 10:50 10:50 13:10 AST 39 (17-59) U/L Troponin I <0.012 <0.012 (0.000-0.034) ng/mL Coagulation 10/06/23 Range/Units 10:50 PT 17.3 H (10.0-12.5) sec APTT 29.8 (22.0-30.0) sec CBC 10/06/23 10/07/23 Range/Units 10:50 08:31 WBC 10.9 H 9.7 (3.8-10.6) k/uL RBC 4.74 4.81 (4.30-5.90) m/uL Hgb 14.3 14.7 (13.0-17.5) gm/dL Hct 44.3 45.6 (39.0-53.0) % Plt Count 220 229 (150-450) k/uL Comprehensive Metabolic Panel 10/06/23 Range/Units 10:50 Sodium 136 L (137-145) mmol/L Potassium 4.6 (3.5-5.1) mmol/L Chloride 108 H (98-107) mmol/L Carbon Dioxide 19 L (22-30) mmol/L BUN 16 (9-20) mg/dL Creatinine 0.57 L (0.66-1.25) mg/dL Glucose 88 (74-99) mg/dL Calcium 9.0 (8.4-10.2) mg/dL AST 39 (17-59) U/L ALT 31 (4-49) U/L Alkaline Phosphatase 87 (38-126) U/L Total Protein 6.8 (6.3-8.2) g/dL Albumin 3.5 (3.5-5.0) g/dL Current Medications Generic Name Dose Route Start Last Admin Trade Name Freq PRN Reason Stop Dose Admin Apixaban 5 mg 10/06/23 21:00 10/07/23 08:45 Apixaban 5 Mg Tab PO 5 mg BID LIT Administration Protocol Diltiazem HCl 120 mg 10/06/23 21:00 10/07/23 08:45 Diltiazem Cd 120 Mg Cap.Er.24h PO 120 mg BID LIT Administration Famotidine 20 mg 10/06/23 15:00 10/07/23 08:44 Famotidine 20 Mg Tab PO 20 mg DAILY LIT Administration Diltiazem HCl 125 mg/ Sodium 125 mls @ 10 mls/hr 10/07/23 01:30 10/07/23 01:55 Chloride IV 10 mg/hr .[id number] LIT 10 mls/hr Administration 10 MG/HR Metoprolol Tartrate 25 mg 10/06/23 15:00 10/07/23 08:45 Metoprolol Tartrate 25 Mg Tab PO 25 mg BID LIT Administration Naloxone HCl 0.2 mg 10/06/23 12:36 Naloxone 0.4 Mg/Ml 1 Ml Vial IV Q2M PRN Opioid Reversal Intake and Output 10/06/23 10/07/23 10/07/23 22:59 06:59 14:59 Intake Total 57.417 Balance 57.417 Intake: Intake, IV Titration 57.417 Amount Diltiazem 125 mg In 57.417 Sodium Chloride 0.9% 100 ml @ 5 MG/HR 5 mls/hr IV .Q24H [facility] Rx#:[id number] 10/07/23 08:31 10/06/23 10:50
[2023-10-07 16:51] VITALS: RESP 18
[2023-10-08] MEDS: DILTIAZEM 125 MG in SODIUM CHLORIDE 0.9% 100 ML IV SCH (04:16)
[2023-10-08] MEDS: METOPROLOL TARTRATE 25 MG TAB PO SCH (08:34)
[2023-10-08] MEDS: DILTIAZEM CD 120 MG CAP.ER.24H PO SCH (08:34)
[2023-10-08] MEDS: APIXABAN 5 MG TAB PO SCH (08:34)
[2023-10-08] MEDS: FAMOTIDINE 20 MG TAB PO SCH (08:34)
[2023-10-08] MEDS ORDERED: METOPROLOL TARTRATE 12.5 MG TAB PO STA (09:33)
[2023-10-08 11:16] LABS: African American GFR (CKD) >90 (>60 ml/min/1.73 sqM); Anion Gap 8 mmol/L; Blood Urea Nitrogen 11 mg/dL (9-20); Calcium 8.9 mg/dL (8.4-10.2); Carbon Dioxide 23 mmol/L (22-30); Chloride 106 mmol/L (98-107); Glucose 108 mg/dL (74-99); Non-African American GFR(CKD) >90 (>60 ml/min/1.73 sqM); Sodium 137 mmol/L (137-145)
--- NOTE | 2023-10-08 11:40 | P.PN ---
Subjective Progress Note Date: 10/08/23 Consult reason: atrial fibrillation Chief complaint: a-fib with RVR History of present illness: History of present illness: Patient is a pleasant 67-year-old male with significant past medical history of hypertension, atrial fibrillation, extensive lower extremity DVT and bilateral pulmonary embolism presented to the emergency department due to A-fib with RVR. He does follow with Dr. Cancino in the office. Recent admission 08/25/2023 with LLE DVT, billateral pulmonary emboli with right heart strain. He underwent EKOS procedure. He was scheduled to have percutaneous thrombectomy of the left lower extremity with Dr. Garcia however was found to be in A-fib with RVR and surgery was postponed and he was sent to the ER. Does report that he has had a cough and congestion as well as a sore throat for the past month. He has taken 10-day course of antibiotics and 5 days of steroids. He denies any chest pain or pressure. He does have occasional shortness of breath. He denies any palpitations or heart racing. Denies any dizziness or lightheadedness, no syncope. He does report that he ran out of his Cardizem at home approximately 1 week ago and this was not refilled. He also did miss 2 days of his Eliquis. While shows atrial fibrillation with RVR, 148 bpm. Labs reviewed: WBC 10.9, sodium 136, creatinine 0.57, troponin negative x 2, TSH is normal. / Yesterday, patient was weaned off Cardizem drip and started on oral Cardizem and continued on oral anticoagulation. Metoprolol was increased to 37.5 mg twice daily. Patient is currently in atrial fibrillation running between 118 and 122 bpm. Blood pressure 132/86, pulse ox 96% on room air. Patient has felt some palpitations this morning. PHYSICAL EXAMINATION: This is a 67-year-old male in no apparent distress at the time of my examination. HEENT: Head is atraumatic, normocephalic. Pupils are equal, round. Sclerae anicteric. Conjunctivae are clear. Mucous membranes of the mouth are moist. Neck is supple. There is no jugular venous distention. No carotid bruit is heard. CHEST EXAMINATION: Lungs are clear to auscultation. No chest wall tenderness is noted on palpation or with deep breathing. HEART EXAMINATION: Heart irregular rate and rhythm. S1, S2 heard. No murmurs, gallops or rub. ABDOMEN: Soft, nontender. EXTREMITIES: 2+ peripheral pulses with no evidence of peripheral edema and no calf tenderness noted. NEUROLOGIC EXAMINATION: Patient is awake, alert and oriented x3. IMPRESSION AND PLAN: Paroxysmal atrial fibrillation with RVR Lower extremity DVT Pulmonary emboli with prior right heart strain Hypertension PLAN: Continue oral Cardizem CD 120 mg twice daily Increase Lopressor to 50 mg twice daily Continue Eliquis 5 mg twice daily Discussed option of rhythm control with amiodarone, electrocardioversion and possible ablation at a later date. Patient not likely to convert by electrocardioversion Patient is in agreement to start amiodarone today, if heart rate is improved, okay to discharge home from a cardiology standpoint. At time of discharge, patient will follow-up with Dr. Echeverria in 1 week. Nurse practitioner note has been reviewed, I agree with documented findings and plan of care. Patient was seen and examined. Objective - Vital Signs Vital signs: Vital Signs Temp 98.6 F 10/07/23 20:00 Pulse 103 H 10/08/23 04:00 Resp 18 10/08/23 04:00 BP 132/86 10/08/23 04:00 Pulse Ox 96 10/08/23 04:00 FiO2 Intake & Output 10/07/23 10/08/23 10/08/23 18:59 06:59 18:59 Intake Total 180 180 Balance 180 180 Weight 81.193 kg Intake: Oral 180 180 - Labs CBC & Chem 7: 10/07/23 08:31 10/08/23 09:45 Labs: Abnormal Lab Results - Last 24 Hours (Table) 10/07/23 Range/Units 08:31 Sodium 136 L (137-145) mmol/L Chloride 108 H (98-107) mmol/L Carbon Dioxide 19 L (22-30) mmol/L Creatinine 0.49 L (0.66-1.25) mg/dL Glucose 132 H (74-99) mg/dL Total Bilirubin 1.7 H (0.2-1.3) mg/dL Albumin 3.3 L (3.5-5.0) g/dL
[2023-10-08 13:25] VITALS: BP 125/87; TEMP 97.7
[2023-10-08] MEDS ORDERED: AMIODARONE 200 MG TAB PO SCH (13:30)
[2023-10-08 18:16] VITALS: PULSE 86
[2023-10-08] MEDS ORDERED: METOPROLOL TARTRATE 50 MG TAB PO SCH (21:00)
== END 2023-10-08 18:14 | disposition home or self-care (01) | DRG 310 ==
LOC: EC 10:24 → 3SCARD 12:37
PROVIDERS: ADMIT Internal Medicine; ATTEND Internal Medicine
DX: I48.0 Paroxysmal atrial fibrillation (principal); I10 Essential (primary) hypertension; Z79.01 Long term (current) use of anticoagulants; R00.0 Tachycardia, unspecified; M19.90 Unspecified osteoarthritis, unspecified site; Z96.651 Presence of right artificial knee joint; Z86.718 Personal history of other venous thrombosis and embolism; Z86.711 Personal history of pulmonary embolism; Z87.01 Personal history of pneumonia (recurrent); Z91.030 Bee allergy status; Z79.899 Other long term (current) drug therapy; Z87.19 Personal history of other diseases of the digestive system
CPT/HCPCS: 36415; 71046; 80048; 80053; 83735; 83880; 84439; 84443; 84481; 84484; 85025; 85610; 85730; 93005; 96365; 96366; 96368; 99291

== ENCOUNTER → 2023-10-06 | Day surgery (SDC) | payer MEDICARE ==
[~2023-10-06] MED LIST: SODIUM CHLORIDE 0.9% 1,000 ML in EMPTY BAG 1 BAG IV ONE
[2023-10-06] MEDS: SODIUM CHLORIDE 0.9% 1,000 ML IV ONE (09:15)
[2023-10-06 09:42] VITALS: BP 141/93; PULSE 142; RESP 18; TEMP 98.3
[2023-10-06 09:43] LABS: Basophils # (A) 0.1 k/uL (0-0.2); Basophils % (A) 1 %; Eosinophils # (A) 0.1 k/uL (0-0.7); Eosinophils % (A) 1 %; HCT 47.4 % (39.0-53.0); HGB 15.5 gm/dL (13.0-17.5); Lymphocytes # (A) 1.7 k/uL (1.0-4.8); Lymphocytes % (A) 13 %; MCH 30.4 pg (25.0-35.0); MCHC 32.7 g/dL (31.0-37.0); Mean Platelet Volume 8.4; Monocytes # (A) 0.8 k/uL (0-1.0); Monocytes % (A) 6 %; Neutrophils # (A) 10.4 k/uL (1.3-7.7); Neutrophils % (A) 78 %; Platelet Count 248 k/uL (150-450); RDW 13.8 % (11.5-15.5); WBC 13.3 k/uL (3.8-10.6)
[2023-10-06 09:51] LABS: African American GFR (CKD) >90 (>60 ml/min/1.73 sqM); Anion Gap 10 mmol/L; Blood Urea Nitrogen 16 mg/dL (9-20); Calcium 9.3 mg/dL (8.4-10.2); Carbon Dioxide 19 mmol/L (22-30); Chloride 108 mmol/L (98-107); Glucose 103 mg/dL (74-99); Non-African American GFR(CKD) >90 (>60 ml/min/1.73 sqM); Potassium 4.4 mmol/L (3.5-5.1); Sodium 137 mmol/L (137-145)
== END ==
LOC: CATHCVL 09:08
PROVIDERS: ATTEND Surgery
DX: Z53.8 Procedure and treatment not carried out for other reasons (principal); I10 Essential (primary) hypertension; J30.1 Allergic rhinitis due to pollen; Z86.711 Personal history of pulmonary embolism; Z79.01 Long term (current) use of anticoagulants; Z79.899 Other long term (current) drug therapy; Z82.49 Family history of ischemic heart disease and other diseases of the circulatory system; Z96.652 Presence of left artificial knee joint
CPT/HCPCS: 80048; 85025

== ENCOUNTER 2023-10-21 11:03 | Emergency (ER) | payer MEDICARE ==
[2023-10-21 12:55] LABS: Basophils # (A) 0.1 k/uL (0-0.2); Basophils % (A) 1 %; Eosinophils # (A) 0.3 k/uL (0-0.7); Eosinophils % (A) 5 %; HCT 51.4 % (39.0-53.0); HGB 16.2 gm/dL (13.0-17.5); Hypochromasia Slight; Lymphocytes # (A) 1.5 k/uL (1.0-4.8); Lymphocytes % (A) 22 %; MCH 29.5 pg (25.0-35.0); MCHC 31.5 g/dL (31.0-37.0); MCV 93.4 fL (80.0-100.0); Mean Platelet Volume 7.6; Monocytes # (A) 0.6 k/uL (0-1.0); Monocytes % (A) 9 %; Neutrophils # (A) 4.4 k/uL (1.3-7.7); Neutrophils % (A) 61 %; Platelet Count 293 k/uL (150-450); RDW 13.6 % (11.5-15.5); WBC 7.1 k/uL (3.8-10.6)
[2023-10-21 13:15] LABS: ALT 25 U/L (4-49); AST 31 U/L (17-59); African American GFR (CKD) >90 (>60 ml/min/1.73 sqM); Albumin 3.9 g/dL (3.5-5.0); Alkaline Phosphatase 91 U/L (38-126); Anion Gap 8 mmol/L; Blood Urea Nitrogen 14 mg/dL (9-20); Carbon Dioxide 22 mmol/L (22-30); Chloride 108 mmol/L (98-107); Glucose 105 mg/dL (74-99); Non-African American GFR(CKD) >90 (>60 ml/min/1.73 sqM); Potassium 4.3 mmol/L (3.5-5.1); Sodium 138 mmol/L (137-145); Total Bilirubin 0.7 mg/dL (0.2-1.3); Total Protein 7.9 g/dL (6.3-8.2)
--- NOTE | 2023-10-21 14:03 | ED ---
General Adult HPI - General Chief complaint: Skin/Abscess/Foreign Body Stated complaint: rash Time Seen by Provider: 10/21/23 11:37 Source: patient Mode of arrival: ambulatory Limitations: no limitations - History of Present Illness Initial comments: 68-year-old male presents to the emergency room for a chief complaint of rash. She states a few weeks ago he developed a rash on the right knee. It has developed some surrounding redness. Patient was on antibiotics for it which did help however since he has been off them over the past few days it seemed to return. He has full range of motion of the right knee and denies any knee pain although there is slight swelling noted. Also over the past 2 days he has developed a red rash on the left thigh and minimally on the abdomen and forearms. It is itchy. He denies systemic symptoms. He does have a history of DVTs. He is anticoagulated.Patient has no other complaints at this time including shortness of breath, chest pain, abdominal pain, nausea or vomiting, headache, or visual changes. - Related Data Home Medications Medication Instructions Recorded Confirmed Apixaban [Eliquis] 5 mg PO BID 10/06/23 10/06/23 Previous Rx's Medication Instructions Recorded Diltiazem Cd [Cardizem CD] 120 mg PO BID #90 cap 08/30/23 Amiodarone [Cordarone] 200 mg PO BID #84 tab 10/08/23 Metoprolol Tartrate [Lopressor] 50 mg PO BID #60 tab 10/08/23 Amoxic-Pot Clav 875-125Mg 1 tab PO Q12HR 10 Days #20 tab 10/21/23 [Augmentin 875-125] predniSONE 50 mg PO DAILY #5 tablet 10/21/23 Allergies Allergy/AdvReac Type Severity Reaction Status Date / Time bee pollen Allergy Rash/Hives Verified 10/21/23 11:18 Review of Systems ROS Statement: Those systems with pertinent positive or pertinent negative responses have been documented in the HPI. ROS Other: All systems not noted in ROS Statement are negative. Past Medical History Past Medical History: Atrial Fibrillation, Deep Vein Thrombosis (DVT), Hypertension, Liver Disease, Osteoarthritis (OA), Pneumonia, Pulmonary Embolus (PE) Additional Past Medical History / Comment(s): shingles April 2023, recent adm. for DVT & PE, new dx. A-fib, current sore throat & nasal congestion, covid test this am neg., had been prescribed med from PCP for symptoms but is now out of, is calling PCP today,. Pneumonia July 2023, recently finished meds. for Hepatitis C-needs blood test since finished med. per pt History of Any Multi-Drug Resistant Organisms: None Reported Past Surgical History: Hernia Repair, Joint Replacement Additional Past Surgical History / Comment(s): Right knee replacement, had procedure to dissolve PE & DVT while here recently Past Anesthesia/Blood Transfusion Reactions: No Reported Reaction Past Psychological History: No Psychological Hx Reported Smoking Status: Never smoker Past Alcohol Use History: None Reported Past Drug Use History: None Reported General Exam - General Exam Comments Initial Comments: Right leg: Patient has scaling rash with surrounding erythema likely cellulitis. Full range of motion of the right knee joint. Mild edema overlying the right anterior knee. He also has chronic wound on mid tib-fib without signs of infection. left leg: Patient has non-blanchable erythematous macular rash on inner thigh Limitations: no limitations General appearance: alert, in no apparent distress Head exam: Present: atraumatic Eye exam: Present: normal appearance, PERRL, EOMI. Absent: scleral icterus, conjunctival injection ENT exam: Present: normal exam, mucous membranes moist Neck exam: Present: normal inspection, full ROM. Absent: tenderness Respiratory exam: Present: normal lung sounds bilaterally. Absent: respiratory distress, wheezes Cardiovascular Exam: Present: regular rate, normal rhythm, normal heart sounds GI/Abdominal exam: Present: soft, normal bowel sounds. Absent: distended, tenderness Course Vital Signs 10/21/23 11:16 Temperature 98.1 F Pulse Rate 63 Respiratory 20 Rate Blood Pressure 150/89 O2 Sat by Pulse 99 Oximetry Medical Decision Making - Medical Decision Making Was pt. sent in by a medical professional or institution (, [facility], [facility], urgent care, hospital, or [facility]...) When possible be specific @ -No Did you speak to anyone other than the patient for history (EMS, parent, family, police, friend...)? What history was obtained from this source @ -No Did you review nursing and triage notes (agree or disagree)? Why? @ -I reviewed and agree with nursing and triage notes Were old charts reviewed (outside hosp., previous admission, EMS record, old EKG, old radiological studies, urgent care reports/EKG's, [facility] records)? Report findings @ -Previous admission reviewed Differential Diagnosis (chest pain, altered mental status, abdominal pain women, abdominal pain men, vaginal bleeding, weakness, fever, dyspnea, syncope, headache, dizziness, GI bleed, back pain, seizure, CVA, palpatations, mental health)? @ -Cellulitis, abscess, vasculitis, staph infection, EKG interpreted by me (3pts min.). @ -As above X-rays interpreted by me (1pt min.). @ -None done CT interpreted by me (1pt min.). @ -None done U/S interpreted by me (1pt. min.). @ -None done What testing was considered but not performed or refused? (CT, X-rays, U/S, labs)? Why? @ -None What meds were considered but not given or refused? Why? @ -None Did you discuss the management of the patient with other professionals (professionals i.e. , PA, [facility], lab, RT, psych nurse, addiction social worker, manager intel, teacher, public service officer, casey saw operator)? Give summary @ -No Was smoking cessation discussed for >3mins.? @ -No Was critical care preformed (if so, how long)? @ -No Were there social determinants of health that impacted care today? How? (Homelessness, low income, unemployed, alcoholism, drug addiction, transportation, low edu. Level, literacy, decrease access to med. care, halfway, rehab)? @ -No Was there de-escalation of care discussed even if they declined (Discuss DNR or withdrawal of care, Hospice)? DNR status @ -No What co-morbidities impacted this encounter? (DM, HTN, Smoking, COPD, CAD, Cancer, CVA, ARF, Chemo, Hep., AIDS, mental health diagnosis, sleep apnea, morbid obesity)? @ -Afib Was patient admitted / discharged? Hospital course, mention meds given and route, prescriptions, significant lab abnormalities, going to OR and other pertinent info. @ -68-year-old male evaluated in the emergency room for rash. Patient thinks he was on Keflex but has been off of it for about 5 days in which the rash on the right knee worsened again. He also developed some swelling above the knee however has no pain in the knee joint. He also has a macular rash non- blanchable on the left inner thigh consistent with vasculitis. CBC CMP unremarkable. Discussed inpatient versus outpatient treatment with patient, prefers to try another round of outpatient antibiotics before going with an admission. Patient was started on Augmentin as he was previously on Keflex. Patient will follow-up with his doctor early Monday. If symptoms worsen such as knee pain or difficulty bending the knee he will return to the emergency room. Undiagnosed new problem with uncertain prognosis? @ -No Drug Therapy requiring intensive monitoring for toxicity (Heparin, Nitro, Insulin, Cardizem)? @ -No Were any procedures done? @ -No Diagnosis/symptom? @ Cellulitis, vasculitis Acute, or Chronic, or Acute on Chronic? @ -Acute Uncomplicated (without systemic symptoms) or Complicated (systemic symptoms)? @ -Uncomplicated Side effects of treatment? @ -No Exacerbation, Progression, or Severe Exacerbation? @ -No Poses a threat to life or bodily function? How? (Chest pain, [place], [place], pneumonia, PE, COPD, DKA, ARF, appy, cholecystitis, CVA, Diverticulitis, Homicidal, Suicidal, threat to staff... and all critical care pts) @ -No - Lab Data Result diagrams: 10/21/23 12:33 10/21/23 12:33 Lab Results 10/21/23 10/21/23 Range/Units 12:33 12:33 WBC 7.1 (3.8-10.6) k/uL RBC 5.50 (4.30-5.90) m/uL Hgb 16.2 (13.0-17.5) gm/dL Hct 51.4 (39.0-53.0) % MCV 93.4 (80.0-100.0) fL MCH 29.5 (25.0-35.0) pg MCHC 31.5 (31.0-37.0) g/dL RDW 13.6 (11.5-15.5) % Plt Count 293 (150-450) k/uL MPV 7.6 Neutrophils % 61 % Lymphocytes % 22 % Monocytes % 9 % Eosinophils % 5 % Basophils % 1 % Neutrophils # 4.4 (1.3-7.7) k/uL Lymphocytes # 1.5 (1.0-4.8) k/uL Monocytes # 0.6 (0-1.0) k/uL Eosinophils # 0.3 (0-0.7) k/uL Basophils # 0.1 (0-0.2) k/uL Hypochromasia Slight Sodium 138 (137-145) mmol/L Potassium 4.3 (3.5-5.1) mmol/L Chloride 108 H (98-107) mmol/L Carbon Dioxide 22 (22-30) mmol/L Anion Gap 8 mmol/L BUN 14 (9-20) mg/dL Creatinine 0.60 L (0.66-1.25) mg/dL Est GFR (CKD-EPI)AfAm >90 (>60 ml/min/1.73 sqM) Est GFR (CKD-EPI)NonAf >90 (>60 ml/min/1.73 sqM) Glucose 105 H (74-99) mg/dL Calcium 10.0 (8.4-10.2) mg/dL Total Bilirubin 0.7 (0.2-1.3) mg/dL AST 31 (17-59) U/L ALT 25 (4-49) U/L Alkaline Phosphatase 91 (38-126) U/L Total Protein 7.9 (6.3-8.2) g/dL Albumin 3.9 (3.5-5.0) g/dL Disposition Clinical Impression: Vasculitis, Cellulitis Disposition: HOME SELF-CARE Condition: Good Instructions (If sedation given, give patient instructions): Cellulitis (ED) Additional Instructions: Take antibiotic and steroid as directed. Follow-up with your primary care doctor early next week. If symptoms are worsening such as worsening pain, fevers, or decreased range of motion of the right knee return to the emergency room. Prescriptions: Amoxic-Pot Clav 875-125Mg [Augmentin 875-125] 1 tab PO Q12HR 10 Days #20 tab predniSONE 50 mg PO DAILY #5 tablet Is patient prescribed a controlled substance at d/c from ED?: No Referrals: Ad Cardoza MD [Primary Care Provider] - 1-2 days Time of Disposition: 14:00
[2023-10-21] MEDS: cefTRIAXone 1,000 MG VIAL (IM USE) IM STA (14:07)
[2023-10-21 14:15] VITALS: BP 130/82; PULSE 51; RESP 18; TEMP 97.9
== END 2023-10-21 14:33 | disposition home or self-care (01) ==
LOC: EC 11:03
DX: I77.6 Arteritis, unspecified (principal); L03.116 Cellulitis of left lower limb; I48.91 Unspecified atrial fibrillation; I10 Essential (primary) hypertension; Z79.01 Long term (current) use of anticoagulants; Z91.030 Bee allergy status
CPT/HCPCS: 36415; 80053; 85025; 99284; 96372; J0696